=== PATIENT | female | born 1990 | race Caucasian/White ===

== ENCOUNTER 2018-01-28 21:48 | Emergency (ER) | payer MEDICAID, SELFPAY ==
[2018-01-28 21:48] VITALS: BP 132/84; PULSE 78; RESP 16; TEMP 36.7; O2SAT 98; BMI 38.0
[2018-01-28 21:55] VITALS: PULSE 73; RESP 16; O2SAT 97
--- NOTE | 2018-01-28 21:56 | ED.RN ---
RN CALLED FOR EKG, PULLED OLD EKG'S FOR
--- NOTE | 2018-01-28 22:20 | RAD_ITS ---
STUDY: X-RAY CHEST REASON FOR EXAM: Female, 27 years old. STERNAL CHEST PAIN STARTING APPROX 30 MIN AGO. WEAKNESS IN ALL EXTREMITIES TECHNIQUE: Single frontal view of the chest. COMPARISON: 11/13/2013 FINDINGS: The lungs are clear and expanded. There is no demonstrated pleural abnormality. Normal size heart. Normal mediastinum and win. Normal visualized pulmonary arteries. Normal visualized aortic arch and descending thoracic aorta. Normal visualized thoracic spine. Normal visualized ribs, clavicles, and shoulders. There is no demonstrated abnormality of the visualized soft tissue structures of the upper abdomen. RAD/Chest 1 View (Portable) IMPRESSION: Normal x-ray examination of the chest. Electronically Signed: Thor Jackson MD at 22:34 EDT Tel , Service support ,
--- NOTE | 2018-01-28 22:20 | EKG12_ITS ---
Test Reason : CP Blood Pressure : / mmHG Vent. Rate : 074 BPM Atrial Rate : 074 BPM P-R Int : 130 ms QRS Dur : 082 ms QT Int : 380 ms P-R-T Axes : 046 035 038 degrees QTc Int : 421 ms Normal sinus rhythm Normal ECG Confirmed by MARISSA JUÁREZ, MATTHEW ([id number]), clinical editor LARRY DURAN ([id number] on 01/31/2018 1:19:52 PM Referred By: ALBA/ESTHER Confirmed By:MATTHEW ANN MD
[2018-01-28 22:29] LABS: Absolute Lymphocyte Count 3.86 X10^3/ul (0.83-4.51); Absolute Neutrophil Count 5.5 X10^3/uL (2.0-7.7); Basophil# 0.04 X10^3/uL; Basophil% 0.4 % (0-1); Eosinophil# 0.12 X10^3/uL; Eosinophils% 1.2 % (0-5); Hematocrit 43.9 % (37-47); Hemoglobin 14.4 g/dl (12.0-15.0); Lymphocyte # 3.86 X10^3/ul (4.0); Lymphocyte % 38.7 % (19-41); Mean Corp Hgb Conc 32.8 g/gl (32-36); Mean Corpuscular Hgb 27.7 pg (27.0-32.0); Mean Corpuscular Volume 84.6 fL (81-99); Mean Platelet Vol. 10.5 fl (6.2-12.0); Monocyte# 0.47 X10^3/uL; Monocyte% 4.7 % (0-10); Neutrophil # 5.48 X10^3/uL (2.7-7.7); Neutrophil % 54.9 % (47-70); Platelet Count 281 K/mm3 (150-450); RBC Distribution Width CV 14.1 % (11.6-14.6); RBC Distribution Width SD 43.5 fl (35.1-43.9); Red Blood Count 5.19 M/mm3 (4.2-5.4)
[2018-01-28 22:30] LABS: POSITIVE COUNT NO; POSITIVE DIFFERENTIAL NO; POSITIVE MORPHOLOGY NO
[2018-01-28 22:47] LABS: Anion Gap 7 (5-15); BUN 8 mg/dL (7-18); Chloride 107 mmol/L (98-107); EST Glomerular Filtration Rate 69 mL/min (>60); Est Glom Filt Rate - Afr Amer 84 mL/min (>60); Estimated Creatinine Clearance 62.64 ml/min; Glucose 86 mg/dL (74-106); Potassium 3.4 mmol/L (3.5-5.1); Sodium Level 139 mmol/L (136-145)
[2018-01-28 23:10] LABS: D-Dimer Quantitative (DVT/PE) < 0.27 FEU/ug/m (0.27-0.49)
[2018-01-28 23:11] LABS: Pregnancy, Serum, hCG Quali. NEGATIVE Negative (0-9 Nonpreg)
--- NOTE | 2018-01-28 23:40 | ED.VISSUMM ---
- ER Visit Summary Date of Service: 01/28/18 Chief Complaint: Chest pain History of Present Illness: The patient is a 27 F reports having spots in her vision yesterday. That spontaneously resolved. She woke this morning with some chest pressure that persisted throughout the day. This evening she developed spots in her vision again, both eyes, followed by chest pressure. She states her legs became very weak. She denied feeling short of breath. 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 She denies any significant change in lifting over her normal however. Physical Examination: Vital signs are unremarkable. Patient sitting upright in bed no acute distress. Head neck examination is unremarkable. Heart is regular rate and rhythm. Lung sounds are clear. She does have reproducible chest wall tenderness. There is no crepitus. Abdomen is soft nontender. Lower extremity examination was no significant calf tenderness or edema. She has strong distal pulses. Test Results: EKG is sinus at 74 with no sign of acute ischemia. CBC and chemistry studies are significant only for potassium slightly low at 3.4. Troponin and d-dimer are both negative. test is negative. Chest x-ray is normal. Emergency Department Course and Treatment: Patient was given gentle IV fluids. On repeat evaluation she has no significant complaints. Test results were discussed with her. My suspicion is that she has musculoskeletal chest wall pain from starting a new job last night. I believe she may be having ocular migraines with spots in her vision. Tonight when this occurred I believe this led to increased anxiety which worsen her chest pain and made her legs weak. At this time I see no sign of aortic dissection, pulmonary embolism, or other acute cardiac issue causing the symptoms. Treatment Plan: [] Disposition: Discharge Impression: 1. Atypical chest pain 2. Intermittent blurred vision, suspect ocular migraine This note was generated with [employer] software. It may contain incorrect words, spelling, and punctuation that were not noted in review of the chart prior to signing ED Disposition - Plan for ED Patient: Chief Complaint: Chest Pain Referrals: Valerio Maynard MD [Primary Care Provider] -
--- NOTE | 2018-01-28 23:43 | ED.DCSUM_ITS ---
- ER Visit Summary Date of Service: 01/28/18 Chief Complaint: Chest pain History of Present Illness: The patient is a 27 F reports having spots in her vision yesterday. That spontaneously resolved. She woke this morning with some chest pressure that persisted throughout the day. This evening she developed spots in her vision again, both eyes, followed by chest pressure. She states her legs became very weak. She denied feeling short of breath. 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 She denies any significant change in lifting over her normal however. Physical Examination: Vital signs are unremarkable. Patient sitting upright in bed no acute distress. Head neck examination is unremarkable. Heart is regular rate and rhythm. Lung sounds are clear. She does have reproducible chest wall tenderness. There is no crepitus. Abdomen is soft nontender. Lower extremity examination was no significant calf tenderness or edema. She has strong distal pulses. Test Results: EKG is sinus at 74 with no sign of acute ischemia. CBC and chemistry studies are significant only for potassium slightly low at 3.4. Troponin and d-dimer are both negative. test is negative. Chest x- ray is normal. Emergency Department Course and Treatment: Patient was given gentle IV fluids. On repeat evaluation she has no significant complaints. Test results were discussed with her. My suspicion is that she has musculoskeletal chest wall pain from starting a new job last night. I believe she may be having ocular migraines with spots in her vision. Tonight when this occurred I believe this led to increased anxiety which worsen her chest pain and made her legs weak. At this time I see no sign of aortic dissection, pulmonary embolism, or other acute cardiac issue causing the symptoms. Treatment Plan: [] Disposition: Discharge Impression: 1. Atypical chest pain 2. Intermittent blurred vision, suspect ocular migraine This note was generated with [employer] software. It may contain incorrect words, spelling, and punctuation that were not noted in review of the chart prior to signing ED Disposition - Plan for ED Patient: Chief Complaint: Chest Pain Referrals: Valerio Maynard MD [Primary Care Provider] -
--- NOTE | 2018-01-28 23:43 | ED.DEP ---
ED Disposition - Plan for ED Patient: Disposition: Home or Assisted Living Chief Complaint: Chest Pain Instructions: ED Chest Pain Atypical Unkn Cause Referrals: Valerio Maynard MD [Primary Care Provider] - As soon as possible
[2018-01-28 23:50] VITALS: BP 103/52; PULSE 62; RESP 15; O2SAT 97
--- NOTE | 2018-01-28 23:54 | ED.DEP ---
ED Disposition - Plan for ED Patient: Disposition: Home or Assisted Living Chief Complaint: Chest Pain Instructions: ED Chest Pain Atypical Unkn Cause Prescriptions: Ondansetron [Zofran Odt] 4 mg PO Q8H PRN PRN #10 tablet PRN Reason: Nausea Ketorolac [Toradol] 10 mg PO Q6H PRN #14 tablet PRN Reason: Pain Referrals: Valerio Maynard MD [Primary Care Provider] - As soon as possible
== END 2018-01-29 00:02 | disposition home or self-care (01) ==
PROVIDERS: Emergency Provider Emergency Medicine; PCP Family Medicine
DX: R07.89 Other chest pain (principal); H53.8 Other visual disturbances; Z72.0 Tobacco use; G47.419 Narcolepsy without cataplexy
CPT/HCPCS: 71045; 80048; 84484; 84703; 85025; 85379; 93005; 99284; A4216

== ENCOUNTER → 2018-05-05 10:58 | Outpatient (CLI) | payer MEDICAID, SELFPAY ==
[2018-05-05 11:30] LABS: hCG Titer Quant., Serum < 1 mIU/mL (<9 non-preg)
== END ==
PROVIDERS: Family Provider Family Medicine; PCP Family Medicine; Referring Provider Obstetrics & Gynecology; Visit Provider Obstetrics & Gynecology
DX: N91.2 Amenorrhea, unspecified (principal)
CPT/HCPCS: 36415; 84702

== ENCOUNTER 2018-08-26 20:40 | Emergency (ER) | payer MEDICAID, SELFPAY ==
[2018-08-26 20:41] VITALS: BP 137/84; PULSE 101; RESP 15; TEMP 36.6; O2SAT 98; BMI 37.8
--- NOTE | 2018-08-26 21:31 | ED.RN ---
Addendum entered by Katlyn Oliver 08/26/18 21:31: AMBULATED TO LOBBY WITH A STEADY AND INDEPENDENT GAIT. Original Note: PT SEEN WALKING OUT OF ED BY THIS RN.
--- NOTE | 2018-08-26 21:35 | ED.RN ---
LOOKED AROUND TRIAGE, ASKED TRIAGE NURSE, PT NOT IN TRIAGE. UPDATED DR. HICKMAN, HE HAD NOT HAD A CHANCE TO SEE HER YET.
--- NOTE | 2018-08-26 21:36 | ED.VISSUMM ---
- ER Visit Summary Date of Service: 08/26/18 Chief Complaint: I went back to evaluate the patient and she left prior to being evaluated or discharge. History of Present Illness: The patient is a 28 F [] Physical Examination: [] Test Results: [] Emergency Department Course and Treatment: [] Treatment Plan: [] Disposition: [] Impression: Left prior to being evaluated or discharge. No ER physician charge This note was generated with [employer] dictation software. It may contain incorrect words, spelling, and punctuation that were not noted in review of the chart prior to signing ED Disposition - Plan for ED Patient: Referrals: Valerio Maynard MD [Primary Care Provider] -
== END 2018-08-26 22:17 ==
PROVIDERS: Emergency Provider Emergency Medicine; Family Provider Family Medicine; PCP Family Medicine
DX: R42 Dizziness and giddiness (principal)
CPT/HCPCS: 99282; J0153

== ENCOUNTER 2018-08-26 22:18 | Emergency (ER) | payer MEDICAID, SELFPAY ==
[2018-08-26 20:41] VITALS: BMI 37.8
== END 2018-08-26 22:18 ==
PROVIDERS: Emergency Provider Emergency Medicine; Family Provider Family Medicine; PCP Family Medicine
DX: J20.9 Acute bronchitis, unspecified (principal)
CPT/HCPCS: J0153

== ENCOUNTER → 2019-02-02 10:57 | Outpatient (CLI) | payer MEDICAID, SELFPAY ==
[2018-12-19 13:11] VITALS: BMI 35.6
[2019-02-02 11:51] LABS: hCG Titer Quant., Serum < 1 mIU/mL (1-3)
== END ==
PROVIDERS: Family Provider Family Medicine; PCP Family Medicine; Referring Provider Obstetrics & Gynecology; Visit Provider Obstetrics & Gynecology
DX: N91.2 Amenorrhea, unspecified (principal)
CPT/HCPCS: 36415; 84702

== ENCOUNTER → 2019-02-04 10:46 | Outpatient (CLI) | payer MEDICAID, SELFPAY ==
[2018-12-19 13:11] VITALS: BMI 35.6
[2019-02-04 11:33] LABS: hCG Titer Quant., Serum < 1 mIU/mL (1-3)
== END ==
PROVIDERS: Family Provider Family Medicine; PCP Family Medicine; Referring Provider Obstetrics & Gynecology; Visit Provider Obstetrics & Gynecology
DX: N91.2 Amenorrhea, unspecified (principal)
CPT/HCPCS: 36415; 84702

== ENCOUNTER → 2019-04-15 14:09 | Outpatient (CLI) | payer MEDICAID, SELFPAY ==
[2019-04-15 11:09] VITALS: BMI 35.6
[2019-04-20 17:36] LABS: HPV APTIMA, High Risk Negative (Negative)
== END ==
PROVIDERS: Family Provider Family Medicine; PCP Family Medicine; Visit Provider Obstetrics & Gynecology
DX: R30.0 Dysuria (principal); Z12.4 Encounter for screening for malignant neoplasm of cervix
CPT/HCPCS: 87086; 87088; 87624; 88175; G0145

== ENCOUNTER → 2019-04-27 14:25 | Outpatient (CLI) | payer MEDICAID, SELFPAY ==
[2019-04-15 11:09] VITALS: BMI 35.6
[2019-04-27 16:13] LABS: hCG Titer Quant., Serum 6181 mIU/mL (1-3)
== END ==
PROVIDERS: Family Provider Family Medicine; PCP Family Medicine; Referring Provider Obstetrics & Gynecology; Visit Provider Obstetrics & Gynecology
DX: Z34.90 Encounter for supervision of normal pregnancy, unspecified, unspecified trimester (principal)
CPT/HCPCS: 36415; 84702

== ENCOUNTER → 2019-04-29 14:38 | Outpatient (CLI) | payer MEDICAID, SELFPAY ==
[2019-04-15 11:09] VITALS: BMI 35.6
[2019-04-29 15:55] LABS: hCG Titer Quant., Serum 10169 mIU/mL (1-3)
== END ==
PROVIDERS: Family Provider Family Medicine; PCP Family Medicine; Referring Provider Obstetrics & Gynecology; Visit Provider Obstetrics & Gynecology
DX: Z34.90 Encounter for supervision of normal pregnancy, unspecified, unspecified trimester (principal)
CPT/HCPCS: 36415; 84702

== ENCOUNTER 2019-05-26 22:12 | Emergency (ER) | payer MEDICAID, SELFPAY ==
[2019-05-11 15:11] VITALS: BMI 35.6
[2019-05-26 22:13] VITALS: BP 137/86; PULSE 100; RESP 20; TEMP 36.1; O2SAT 99; BMI 38.0
--- NOTE | 2019-05-26 23:30 | ED.VIS.DENTA ---
History of Present Illness Chief Complaint: Dental Informant: Patient Onset: Yesterday Context: Gradual Onset Timing: Continuous Current Severity: Severe Maximum Severity: Severe Associated Symptoms: Hot, Cold Narrative: Patient is a 29-year-old female with no significant past medical history, currently 9 weeks presenting with dental pain. Patient states she went to see her dentist yesterday. He attempted to pull out a bad tooth, her bottom left back molar. She was not anesthetized all the way and her tooth ended up cracking. Patient states she was sent home with a prescription for an antibiotic and Tylenol with codeine. She has an appointment to see him again on Saturday. She notes that today her pain has been significantly worse in that area. She describes as a throbbing aching sensation. Patient states she did have cavity and hole in the tooth before he even started. Patient smokes but states she is trying to quit. Patient feels hot and cold but treats that to her pain. She denies any difficulty swallowing, facial swelling or difficulty breathing. She states she just wants help with her pain. She denies any other complaints at this time. Past Medical History - Allergies and Home Meds Allergies/Adverse Reactions: Allergies egg Allergy (Mild, Verified 05/26/19 22:12) Other adhesive tape Allergy (Verified 05/26/19 22:12) Unknown Latex, Natural Rubber Allergy (Verified 05/26/19 22:12) Hives aspirin Adverse Reaction (Verified 05/26/19 22:12) Abd cramps/diarrhea dicyclomine HCl [From Bentyl] Adverse Reaction (Verified 05/26/19 22:12) Abd cramps/diarrhea erythromycin base [Erythromycin Base] Adverse Reaction (Verified 05/26/19 22:12) Abd cramps/diarrhea naproxen Adverse Reaction (Verified 05/26/19 22:12) Abd cramps/diarrhea sulfamethoxazole [From Bactrim] Adverse Reaction (Verified 05/26/19 22:12) Abd cramps/diarrhea trimethoprim [From Bactrim] Adverse Reaction (Verified 05/26/19 22:12) Abd cramps/diarrhea Primary Care Physician: Valerio Maynard MD [Primary Care Provider] - Past Medical History: - - Narcolepsy, stomach ulcer, headaches Surgical History: noncontributory Smoking Status: Current some day smoker Review of Systems General: Reports: Chills. Denies: Fever, Sweats Eyes: Denies: Visual changes - bilaterally, Diplopia ENT: Reports: - - Left lower dental pain. Denies: Rhinorrhea, Sore throat Cardiovascular: Denies: Chest pain, Palpitations Respiratory: Denies: Dyspnea, Cough, Dyspnea on exertion Gastrointestinal: Denies: Abdominal pain, Nausea, Vomiting, Diarrhea, Melena, Hematochezia Genitourinary: Denies: Dysuria, Hematuria, Frequency Musculoskeletal: Denies: Back pain, Extremity Pain Skin: Denies: Rash, Wounds Neurological: Denies: Headache, Weakness, Numbness Physical Exam Vital Signs/Narrative: Vital Signs Temp Pulse Resp BP Pulse Ox 05/26/19 22:13 96.9 F L 100 20 H 137/86 H 99 Inital Vital Signs reviewed: Yes 1 - Cracked tooth and associated dental decay, area of tenderness with palpation General: Well nourished, Well developed Head: Normocephalic, Atraumatic ENT: Moist mucous membranes, No rhinorrhea, TM's clear Mouth/Throat: Normal inspection lips/gums, Normal oral mucosa, No focal abscess, Normal posterior oropharynx, No sublingual edema, Dental avulsion, Tenderness on tooth percussion, Widespread dental decay. Negative for: Dental abscess, Focal gum swelling Neck: Supple, No lymphadenopathy, Nontender, No JVD Cardiovascular: Regular rate, Regular rhythm, No murmurs Respiratory: No distress, CTA bilaterally, Chest nontender Abdomen: Soft, Nontender, Nondistended, Normal bowel sounds Back: Nontender, Normal Inspection Extremities: Nontender, No edema Skin: Normal color, No rash Neurological: Alert, Oriented x3, Cranial nerves II-XII grossly intact, Normal Strength, Normal Sensation Psychological: Normal affect Diagnostic/Tx/Re-eval - Medical Decision Making Regional and Local Dental Anesthesia: Marcaine, Left Inferior Alveolar Nerve Block Patient evaluated for worsening dental pain. Dental block is performed patient is improvement of her symptoms. She is already on antibiotics. Patient was prescribed Tylenol 3 by her dentist yesterday. Oarrs report is checked which confirms this. Patient is not receiving adequate pain control with this. She is given a short course of [place] for more severe breakthrough pain. She already has a follow-up appointment with her dentist on Saturday, 5 days from now. Patient does have an episode of vomiting in the ER. She states is because of her and she is been unable to eat because of her pain. Patient states she has Phenergan at home to take as needed. As patient is not having any lower abdominal pain or vaginal bleeding I do not think further obstetric evaluation is indicated at this time. Patient is counseled on signs and symptoms requiring return to the emergency room. Patient verbalizes agreement and understand this plan. Patient discharged home in stable and improved condition. ED Disposition - Plan for ED Patient: Disposition: Home or Assisted Living Diagnosis: Dentalgia Instructions: Dental Pain Prescriptions: Hydrocodone/Acetaminophen [Hydrocodon-Acetaminophen 5-325] 1 ea PO Q8 PRN 2 Days #6 tab PRN Reason: Pain Score 6-10/10 Prescription Printed Referrals: Valerio Maynard MD [Primary Care Provider] - Additional Instructions: Is very importantly follow-up with your dentist on Saturday as scheduled. Continue to take the medications prescribed. You may take the [place] prescribed today for severe breakthrough pain. Do not take it in conjunction with the Tylenol with codeine as it would be too much Tylenol. Return to emergency room with worsening symptoms.
[2019-05-27] MEDS: Bupivacaine 0.5%/Epi 1.8 ML Syringe INFILT (00:56)
== END 2019-05-27 00:56 | disposition home or self-care (01) ==
PROVIDERS: Emergency Provider Emergency Medicine; Family Provider Family Medicine; PCP Family Medicine
DX: K08.89 Other specified disorders of teeth and supporting structures (principal); G47.419 Narcolepsy without cataplexy; Z87.19 Personal history of other diseases of the digestive system; Z88.1 Allergy status to other antibiotic agents; Z88.2 Allergy status to sulfonamides; Z88.6 Allergy status to analgesic agent; Z91.040 Latex allergy status
CPT/HCPCS: 41800; 64402; 99283

== ENCOUNTER → 2019-05-27 12:25 | Outpatient (CLI) | payer MEDICAID, SELFPAY ==
[2019-05-27 11:34] VITALS: BMI 38.0
[2019-05-27 13:00] LABS: Absolute Lymphocyte Count 2.65 X10^3/uL (0.83-4.51); Basophil# 0.03 X10^3/uL; Basophil% 0.4 % (0-1); Eosinophil# 0.07 X10^3/uL; Eosinophils% 0.8 % (0-5); Hematocrit 40.5 % (37-47); Hemoglobin 13.3 g/dL (12.0-15.0); Lymphocyte # 2.65 X10^3/ul (4.0); Lymphocyte % 32.1 % (19-41); Mean Corp Hgb Conc 32.8 g/dL (32-36); Mean Corpuscular Hgb 28.2 pg (27.0-32.0); Mean Corpuscular Volume 85.8 fL (81-99); Mean Platelet Vol. 10.2 fl (6.2-12.0); Monocyte# 0.49 X10^3/uL; Monocyte% 5.9 % (0-10); NRBC Flagged by Analyzer 0 % (0-5); Neutrophil # 4.99 X10^3/uL (2.7-7.7); Neutrophil % 60.4 % (47-70); Platelet Count 276 K/mm3 (150-450); RBC Distribution Width CV 13.5 % (11.6-14.6); RBC Distribution Width SD 42.4 fl (35.1-43.9); Red Blood Count 4.72 M/mm3 (4.2-5.4); White Blood Count 8.3 K/mm3 (4.4-11.0)
[2019-05-27 13:12] LABS: Glucose Challenge Gest 1H 50g 87 mg/dL (70-140)
[2019-05-27 14:51] LABS: HIV - WCH Non-Reactive (Nonreactive); Hepatitis B Surface Antigen Non-Reactive (Nonreactive); Rubella IgG > 500.0 IU/mL
[2019-05-28 03:12] LABS: Rapid Plasmin Reagin (RPR) NONREACTIVE (NONREACTIVE)
== END ==
PROVIDERS: Family Provider Family Medicine; PCP Family Medicine; Referring Provider Obstetrics & Gynecology; Visit Provider Obstetrics & Gynecology
DX: Z34.90 Encounter for supervision of normal pregnancy, unspecified, unspecified trimester (principal)
CPT/HCPCS: 36415; 82950; 85025; 86592; 86703; 86762; 86850; 86900; 86901; 87086; 87088; 87340

== ENCOUNTER 2019-06-11 15:28 | Emergency (ER) | payer MEDICAID, SELFPAY ==
[2019-05-27 11:34] VITALS: BMI 38.0
[2019-06-11 15:29] VITALS: BP 134/75; PULSE 109; RESP 17; TEMP 37; O2SAT 98; BMI 38.0
[2019-06-11 15:38] VITALS: BP 130/80; PULSE 98; RESP 14; RESP 16; TEMP 37; O2SAT 97; O2SAT 98
--- NOTE | 2019-06-11 16:04 | ED.VIS.DENTA ---
History of Present Illness Chief Complaint: Dental Informant: Patient Onset: Days Context: Gradual Onset Timing: Continuous Associated Symptoms: Fever, Sensitivity Narrative: Patient is a 29-year-old female currently approximately 12 weeks presenting with persistent dental pain. Patient states she has had pain of her bottom left molar for the past few weeks. She saw a dentist and they attempted to pull the tooth. The tooth cracked at that time. Patient was then discharged with a prescription for Tylenol 3 and antibiotics. She was seen in the ER 2 days later for worsening pain. At that time she was started on [place]. Patient states she is been taking it sparingly but took the last one yesterday. Patient states she is continued to stay on her antibiotics. She notes for the last 4 days she has had intermittent fevers. Her maximum temperature was 102. Patient did not take any medication for fever prior to arrival. Her dental pain has been worsening. Is now sharp with any light touch. She is having a hard time eating because of the pain. She states she is now having a headache and pain in her cheeks because of the tooth pain. She states she has had worsening nausea and vomiting. She states it is worse than her normal vomiting. She denies any abdominal pain. She denies any abnormal vaginal bleeding or pelvic pain. She notes she is not feeling as much motion and is concerned about the . Patient denies any other complaints at this time. Past Medical History - Allergies and Home Meds Allergies/Adverse Reactions: Allergies egg Allergy (Mild, Verified 06/11/19 15:29) Other adhesive tape Allergy (Verified 06/11/19 15:29) Unknown Latex, Natural Rubber Allergy (Verified 06/11/19 15:29) Hives aspirin Adverse Reaction (Verified 06/11/19 15:29) Abd cramps/diarrhea dicyclomine HCl [From Bentyl] Adverse Reaction (Verified 06/11/19 15:29) Abd cramps/diarrhea erythromycin base [Erythromycin Base] Adverse Reaction (Verified 06/11/19 15:29) Abd cramps/diarrhea naproxen Adverse Reaction (Verified 06/11/19 15:29) Abd cramps/diarrhea sulfamethoxazole [From Bactrim] Adverse Reaction (Verified 06/11/19 15:29) Abd cramps/diarrhea trimethoprim [From Bactrim] Adverse Reaction (Verified 06/11/19 15:29) Abd cramps/diarrhea Primary Care Physician: Valerio Maynard MD [Primary Care Provider] - Past Medical History: None Surgical History: noncontributory Smoking Status: Current every day smoker Review of Systems General: Reports: Chills, Fever. Denies: Sweats Eyes: Denies: Visual changes - bilaterally, Diplopia ENT: Reports: - - right lower dental pain . Denies: Rhinorrhea, Sore throat Cardiovascular: Denies: Chest pain, Palpitations Respiratory: Denies: Dyspnea, Cough, Dyspnea on exertion Gastrointestinal: Reports: Nausea, Vomiting. Denies: Abdominal pain, Diarrhea, Melena, Hematochezia Genitourinary: Denies: Dysuria, Hematuria, Frequency Musculoskeletal: Denies: Back pain, Extremity Pain Skin: Denies: Rash, Wounds Neurological: Denies: Headache, Weakness, Numbness Physical Exam Vital Signs/Narrative: Vital Signs Temp Pulse Resp BP Pulse Ox 06/11/19 15:38 98.6 F 98 16 130/80 H 98 06/11/19 15:29 98.6 F 109 H 17 134/75 H 98 Inital Vital Signs reviewed: Yes General: Well nourished, Well developed Head: Normocephalic, Atraumatic ENT: Moist mucous membranes, No rhinorrhea, TM's clear Mouth/Throat: Normal inspection lips/gums, Normal oral mucosa, Normal posterior oropharynx, No sublingual edema, Dental avulsion, Tenderness on tooth percussion - right lower second molar , Widespread dental decay. Negative for: Dental abscess, Focal gum swelling Neck: Supple, No lymphadenopathy, Nontender, No JVD Cardiovascular: Regular rate, Regular rhythm, No murmurs Respiratory: No distress, CTA bilaterally, Chest nontender Abdomen: Soft, Nontender, Nondistended, Normal bowel sounds Back: Nontender, Normal Inspection Extremities: Nontender, No edema Skin: Normal color, No rash Neurological: Alert, Oriented x3, Cranial nerves II-XII grossly intact, Normal Strength, Normal Sensation Psychological: Normal affect Diagnostic/Tx/Re-eval - Medical Decision Making Dental Procedures: [place] temporary sealant placed Regional and Local Dental Anesthesia: Marcaine, Left Inferior Alveolar Nerve Block Patient is evaluated for persistent right lower dental pain. Her tooth is cracked from where her dentist tried to extract its last month. Patient has been on antibiotics since. She has not yet followed up with her dentist. She states she does have an appointment to see him on Saturday, 4 days from now. She states she is been having fevers at home. Patient is afebrile in the emergency room and states she did not take any antipyretics prior to arrival. She does she has had worsening nausea and vomiting. Patient is 12 weeks . She reports that she is felt less activity as well. A bedside ultrasound performed by myself shows a single intrauterine gestation with normal activity and heart tones of 152. Patient's CBC and BMP are grossly normal. She is initially given IV fluids, Zofran and a dose of morphine in the ER. She is then given dental block for pain and Cavit is applied to the cracked tooth. Patient be switched to Augmentin she has already completed a course of penicillin. She is given another short course of [place] as she has a follow-up appointment in a few days. Patient is counseled that no matter how bad her tooth is hurting her she needs to see the dentist because that is the definitive management for her tooth. Patient is agreeable to this. She does not have any physical signs of abscess. She does not have any significant facial swelling or cellulitic changes. She does not have any findings consistent with Edgar's angina. I do not think further imaging of her head/neck is indicated. At time of discharge patient states her pain is returning. She is given a dose of [place] just prior to discharge. Patient is counseled on signs and symptoms requiring return to the emergency room. Patient verbalizes agreement and understand this plan. Patient discharged home in stable and improved condition. ED Disposition - Plan for ED Patient: Disposition: Home or Assisted Living Diagnosis: Dentalgia Instructions: Dental Pain Prescriptions: Amoxicillin/Potassium Clav [Augmentin 875-125 Tablet] 1 ea PO BID #20 tab Prescription Printed Hydrocodone Bitart/Apap 5-325 [[place] 5MG-325MG] 1 tab PO Q8 PRN 2 Days #6 tab PRN Reason: Pain Prescription Printed Referrals: Valerio Maynard MD [Primary Care Provider] - Additional Instructions: It is very important that you follow-up with your dentist as scheduled on Saturday. Return to emergency room for worsening symptoms. Take the medication as prescribed. Stick to a soft/liquid diet until Saturday.
[2019-06-11 16:36] LABS: Hematocrit 40.2 % (37-47); Hemoglobin 13.4 g/dL (12.0-15.0); Mean Corp Hgb Conc 33.3 g/dL (32-36); Mean Corpuscular Hgb 28.4 pg (27.0-32.0); Mean Corpuscular Volume 85.2 fL (81-99); Mean Platelet Vol. 9.9 fl (6.2-12.0); Platelet Count 256 K/mm3 (150-450); RBC Distribution Width CV 12.9 % (11.6-14.6); RBC Distribution Width SD 40.1 fl (35.1-43.9); Red Blood Count 4.72 M/mm3 (4.2-5.4); White Blood Count 10.5 K/mm3 (4.4-11.0)
[2019-06-11] MEDS: 0.9% Normal Saline 1,000 ML 1000 ML IV (16:46)
[2019-06-11] MEDS: Ondansetron 4 MG/2 ML Vial IV (16:46)
[2019-06-11] MEDS: Morphine 4 MG/ML Syringe IV (16:47)
[2019-06-11 17:16] LABS: Anion Gap 9 (5-15); BUN 5 mg/dL (7-18); BUN/Creat Ratio 7.2 RATIO (10-20); Calcium,Total 8.8 mg/dL (8.5-10.1); Chloride 108 mmol/L (98-107); EST Glomerular Filtration Rate 104 mL/min (>60); Est Glom Filt Rate - Afr Amer 126 mL/min (>60); Estimated Creatinine Clearance 83.64 ml/min; Glucose 90 mg/dL (74-106); Potassium 3.8 mmol/L (3.5-5.1); Sodium Level 138 mmol/L (136-145)
[2019-06-11 18:19] VITALS: PULSE 76; RESP 15; O2SAT 98
[2019-06-11] MEDS: HYDROcodone Bitartrate/Apap 5/325 Tablet PO (18:23)
== END 2019-06-11 18:26 | disposition home or self-care (01) ==
PROVIDERS: Emergency Provider Emergency Medicine; Family Provider Family Medicine; PCP Family Medicine
DX: O26.891 Other specified pregnancy related conditions, first trimester (principal); K08.89 Other specified disorders of teeth and supporting structures; O99.331 Smoking (tobacco) complicating pregnancy, first trimester; O99.611 Diseases of the digestive system complicating pregnancy, first trimester; O21.9 Vomiting of pregnancy, unspecified; F17.200 Nicotine dependence, unspecified, uncomplicated; Z3A.12 12 weeks gestation of pregnancy; Z88.1 Allergy status to other antibiotic agents; Z88.6 Allergy status to analgesic agent; Z88.2 Allergy status to sulfonamides; Z91.040 Latex allergy status
CPT/HCPCS: 80048; 85027; 99284; J7030; J2405

== ENCOUNTER → 2019-06-25 11:25 | Outpatient (CLI) | payer MEDICAID, SELFPAY ==
[2019-06-25 11:21] VITALS: BMI 38.0
[2019-06-25 16:41] LABS: Chlamydia Trachomatis by PCR Negative (Negative); Neisserai gonorrhoeae by PCR Negative (Negative); Probe Check PASS; Sample Adequacy Control PASS; Specimen Processing Control PASS
== END ==
PROVIDERS: Family Provider Family Medicine; PCP Family Medicine; Referring Provider Nurse Practitioner Women's Health; Visit Provider Nurse Practitioner Women's Health
DX: O26.20 Pregnancy care for patient with recurrent pregnancy loss, unspecified trimester (principal); Z31.430 Encounter of female for testing for genetic disease carrier status for procreative management; Z3A.00 Weeks of gestation of pregnancy not specified
CPT/HCPCS: 36415; 87491; 87591

== ENCOUNTER → 2019-07-24 12:17 | Outpatient (CLI) | payer MEDICAID, SELFPAY ==
[2019-07-24 12:07] VITALS: BMI 38.0
== END ==
PROVIDERS: PCP Family Medicine; Referring Provider Obstetrics & Gynecology; Visit Provider Obstetrics & Gynecology
DX: Z36.9 Encounter for antenatal screening, unspecified (principal)
CPT/HCPCS: 36415

== ENCOUNTER → 2019-08-04 12:26 | Outpatient (CLI) | payer MEDICAID, SELFPAY ==
[2019-06-25 11:21] VITALS: BMI 38.0
[2019-07-24 12:07] VITALS: BMI 38.0
--- NOTE | 2019-08-04 12:27 | US_ITS ---
STUDY: SECOND AND THIRD TRIMESTER OBSTETRICAL ULTRASOUND REASON FOR EXAM: Female, 29 years old anatomy LMP: March 21, 2019. TECHNIQUE: Transabdominal TECHNICAL QUALITY: Adequate. PRIOR ULTRASOUND: None. FINDINGS: There is a single intrauterine fetus. The fetus is in a cephalic presentation. There is demonstrated cardiac activity with a heart rate of 150 bpm. There is a normal amniotic fluid volume. The largest amniotic fluid pocket measures 6 cm x 2.8 cm. The amniotic fluid index ([place]) is within normal limits. The placenta is posterior and low lying but not previa in location. The tip of the placenta is a 1.1 sinus from the cervix. There are Grade 1 placental changes. The cervix measures 4 cm in length. The adnexal regions are not visualized. BIOMETRY: BPD: 4.57 cm: 19 weeks, 5 days HC: 16.79 cm: 19 weeks, 3 days AC: 14.39 cm: 19 weeks, 5 days FL: 3.13 cm: 19 weeks, 4 days CI: 81.1% FL/BPD: 68.5% FL/HC: FL/AC: 21.7% HC/AC: 1.17 age by current US: 19 weeks, 3 days. JOANN by current US: December 26, 2019. Estimated weight: 307 grams, +/- 45 grams, 60 %. Age by LMP: 19 weeks, 3 days. JOANN by LMP: December 26, 2019. ANATOMY: Gender: Male Cranium: Normal lateral ventricles. Normal choroid plexus. Normal cerebellum. Normal cisterna magna. Normal face, nose and lips. Chest: Normal 4-chamber heart. Abdomen/Pelvis: Normal diaphragm. Normal stomach. Normal abdominal wall. Normal cord insertion. Normal 3 vessel cord. Normal kidneys. Normal bladder. Spine: Normal cervical spine. Normal thoracic spine. Normal lumbar spine. Normal sacrum. Extremities: Normal bilateral upper extremities. Normal bilateral lower extremities. US/OB Anatomy Scan IMPRESSION: Single live intrauterine gestation with a mean gestational age of 19 weeks and 3 days. Electronically Signed: Rolo Cruz, at 9:33 EST , Service support ,
== END ==
PROVIDERS: PCP Family Medicine; Referring Provider Obstetrics & Gynecology; Visit Provider Obstetrics & Gynecology
DX: Z34.90 Encounter for supervision of normal pregnancy, unspecified, unspecified trimester (principal)
CPT/HCPCS: 76805; 76817

== ENCOUNTER → 2019-08-11 13:22 | Outpatient (CLI) | payer MEDICAID, SELFPAY ==
[2019-08-11 11:11] VITALS: BMI 38.0
[2019-08-11 14:09] LABS: Amphetamine Urine VISTA NEGATIVE (<1000 ng/mL); Barbiturate Urine VISTA NEGATIVE (< 200 ng/mL); Benzodiazepine Urine VISTA NEGATIVE (< 200 ng/mL); Cocaine Urine VISTA NEGATIVE (< 300 ng/mL); Ecstacy Urine VISTA NEGATIVE (< 500 ng/mL); Methadone Urine VISTA NEGATIVE (< 300 ng/mL); PCP Urine VISTA NEGATIVE (< 25 ng/mL); THC Urine VISTA NEGATIVE (< 50 ng/mL); Vista UDS pH Range 6
== END ==
PROVIDERS: PCP Family Medicine; Referring Provider Nurse Practitioner Women's Health; Visit Provider Nurse Practitioner Women's Health
DX: O09.90 Supervision of high risk pregnancy, unspecified, unspecified trimester (principal); F19.11 Other psychoactive substance abuse, in remission; Z3A.00 Weeks of gestation of pregnancy not specified
CPT/HCPCS: 80307

== ENCOUNTER → 2019-09-18 11:39 | Outpatient (CLI) | payer MEDICAID, SELFPAY ==
[2019-09-18 10:23] VITALS: BMI 38.0
[2019-09-18 13:31] LABS: Amphetamine Urine VISTA NEGATIVE (<1000 ng/mL); Barbiturate Urine VISTA NEGATIVE (< 200 ng/mL); Benzodiazepine Urine VISTA NEGATIVE (< 200 ng/mL); Cocaine Urine VISTA NEGATIVE (< 300 ng/mL); Ecstacy Urine VISTA NEGATIVE (< 500 ng/mL); Methadone Urine VISTA NEGATIVE (< 300 ng/mL); PCP Urine VISTA NEGATIVE (< 25 ng/mL); THC Urine VISTA NEGATIVE (< 50 ng/mL); Vista UDS pH Range 7
== END ==
PROVIDERS: PCP Family Medicine; Referring Provider Obstetrics & Gynecology; Visit Provider Obstetrics & Gynecology
DX: F19.11 Other psychoactive substance abuse, in remission (principal)
CPT/HCPCS: 80307

== ENCOUNTER 2019-09-21 16:50 | Outpatient (CLI) | payer MEDICAID, SELFPAY ==
[2019-09-18 10:23] VITALS: BMI 38.0
[2019-09-21 16:59] VITALS: BMI 42.3
[2019-09-21 17:18] VITALS: BP 129/61; PULSE 96; TEMP 36.8; O2SAT 96
[2019-09-21 17:20] VITALS: BP 129/61; PULSE 101; PULSE 99; O2SAT 96
[2019-09-21 18:09] LABS: ROM Internal Control Test YES-OK TO RESULT pt. (Internal QC); ROM Patient Test Negative (Negative)
[2019-09-21 18:28] LABS: Mucous, Urine 0 SEEN /hpf (<or=2+)
[2019-09-21 18:30] LABS: Color, Urine Yellow (Yellow); Glucose, Dipstick Normal (Normal); Ketone-Dipstick Negative (Negative); Leukocyte Esterase-Dipstick 25 /ul (Negative); Nitrite-Dipstick Negative (Negative); Occult Blood-Urine 25 /ul (Negative); Protein-Dipstick Negative (Negative); Specific Gravity, Urine 1.015 (1.002-1.030); Urine Bilirubin Dipstick Negative (Negative); Urine Clarity Sl. Cloudy (Clear); Urine Urobilinogen Normal (Normal); Urine pH 6.5 (5.0 - 8.0)
[2019-09-21 19:22] LABS: Squamous Epithelial Cells - UA 5-10 SEEN /hpf (5-10)
[2019-09-21 19:23] LABS: Red Blood Cells-Urine 0-5 SEEN /hpf (0-5); White Blood Cells 0-5 SEEN /hpf (0-5)
[2019-09-21 19:24] LABS: Bacteria RARE /hpf (None Seen)
[2019-09-21 19:45] VITALS: PULSE 90; O2SAT 97
--- NOTE | 2019-09-21 20:30 | OB.TRI.NOTE ---
- Problem List (1) 26 weeks gestation of Status: Acute (2) False labor Status: Acute History of Present Illness Date of Service: 09/21/19 Was patient seen by the physician?: Yes Reason For Visit: R/O LABOR Final JOANN: 12/26/19 Final JOANN Source: US <20 weeks Gestational age: 26 Weeks and 2 Days History of Present Illness: 29yo with hx multiple first trimester SABs presents with cramping lower abdominal pain. She reports it is mild and also has low back pain. Reports feeling wetness. No recent intercourse, + intermittent brown discharge. No recent trauma or falls. Fetus is active. Allergies egg Allergy (Mild, Verified 09/18/19 10:22) Other adhesive tape Allergy (Verified 09/18/19 10:22) Unknown Latex, Natural Rubber Allergy (Verified 09/18/19 10:22) Hives aspirin Adverse Reaction (Verified 09/18/19 10:22) Abd cramps/diarrhea dicyclomine HCl [From Bentyl] Adverse Reaction (Verified 09/18/19 10:22) Abd cramps/diarrhea erythromycin base [Erythromycin Base] Adverse Reaction (Verified 09/18/19 10:22) Abd cramps/diarrhea naproxen Adverse Reaction (Verified 09/18/19 10:22) Abd cramps/diarrhea sulfamethoxazole [From Bactrim] Adverse Reaction (Verified 09/18/19 10:22) Abd cramps/diarrhea trimethoprim [From Bactrim] Adverse Reaction (Verified 09/18/19 10:22) Abd cramps/diarrhea - Pertinent Past Medical History Medical History: Past Medical History (Last Reviewed 09/18/19 @ 10:23 by Ivone Taylor) Anemia Back pain Chest pain History of drug use in recovery Narcolepsy Severe headache Shortness of breath Stomach ulcer unusual tiredness Surgical History: Past Surgical History (Last Reviewed 09/18/19 @ 10:23 by Ivone Taylor) History of x2 Hx laparoscopic cholecystectomy Laboratory Studies: Laboratory Tests 09/21/19 09/21/19 Range/Units 17:30 17:20 Urine Color Yellow (Yellow) Urine Clarity Sl. Cloudy (Clear) Urine pH 6.5 (5.0 - 8.0) Ur Specific [place] 1.015 (1.002-1.030) Urine Protein Negative (Negative) mg/dl Urine Glucose (UA) Normal (Normal) mg/dl Urine Ketones Negative (Negative) mg/dl Urine Occult Blood 25 H (Negative) /ul Urine Nitrite Negative (Negative) Urine Bilirubin Negative (Negative) mg/dL Urine Urobilinogen Normal (Normal) mg/dl Ur Leukocyte Esterase 25 H (Negative) /ul Urine RBC 0-5 SEEN (0-5) /hpf Urine WBC 0-5 SEEN (0-5) /hpf Ur Squamous Epith Cells 5-10 SEEN (5-10) /hpf Urine Bacteria RARE (None Seen) /hpf Urine Mucus 0 SEEN (<or=2+) /hpf Vag Amniotic Fld Detect Negative (Negative) Review of Systems Constitutional: Denies: Fever Gastrointestinal: Denies: Constipation, Diarrhea, Nausea, Vomiting Genitourinary: Denies: Dysuria, Hematuria Gynecological: Reports: - - brown spotting. Denies: Vaginal bleeding Musculoskeletal: Reports: Back Pain Physical Exam Vitals: Vital Signs Temp Pulse BP Pulse Ox 98.3 F 90 129/61 H 97 09/21/19 17:18 09/21/19 19:45 09/21/19 17:20 09/21/19 19:45 General: Alert, Oriented x3, Cooperative, No apparent distress HEENT: Atraumatic, Normocephalic Cardiovascular: Regular rate Lungs: Normal air movement Abdomen: Soft, Non Tender, Non-Distended, Gravid, - - No CVA or suprapubic tenderness Neurological: Neuro grossly intact ELECTRICAL AND INSTRUMENTATION MECHANIC: Normal external genitalia Estimated gestational size: Appropriate for gestational size Presentation: Cephalic Cervix Dilation (cm): 0 - visually and on TVUS, SSE - neg pool NST - FHR Rate Baby A Baseline: 140 Variability:: Moderate Accelerations:: 15 x 15 Decelerations:: None NST Reactive:: Yes FHR Category:: Category I Uterine Activity:: 0/10 Impression/Plan 29yo with false labor, [place] Thrasher contractions; Cat I FHR -Bedside US performed with cervical length 34-39mm os. Placenta remains low lying <2cm from external os. -ROM plus negative -No evidence of labor -U/A c/w contamination and blood likely 2/2 spotting from low lying placenta. No evidence of infection. -d/c home. Office Visits / Consults: [id number] OV L2 New
== END 2019-09-21 20:18 | disposition home or self-care (01) ==
LOC: WPOUT 16:57 → WP 16:58
PROVIDERS: PCP Family Medicine; Referring Provider Obstetrics & Gynecology; Visit Provider Obstetrics & Gynecology
DX: O47.02 False labor before 37 completed weeks of gestation, second trimester (principal); O99.352 Diseases of the nervous system complicating pregnancy, second trimester; G47.419 Narcolepsy without cataplexy; Z3A.26 26 weeks gestation of pregnancy; Z91.040 Latex allergy status; Z88.6 Allergy status to analgesic agent; Z88.2 Allergy status to sulfonamides; Z88.1 Allergy status to other antibiotic agents
CPT/HCPCS: 59025; 59050; 76815; 81001; 84112; 99218; G0378

== ENCOUNTER → 2019-09-23 13:45 | Outpatient (CLI) | payer MEDICAID, SELFPAY ==
[2019-09-18 10:23] VITALS: BMI 38.0
[2019-09-21 16:59] VITALS: BMI 42.3
--- NOTE | 2019-09-23 13:45 | US_ITS ---
STUDY: SECOND AND THIRD TRIMESTER OBSTETRICAL ULTRASOUND - LIMITED REASON FOR EXAM: Female, 29 years old low lying placenta LMP: March 20, 2019. PRIOR ULTRASOUND: Comparison is made with prior examination dated August 04, 2019. TECHNIQUE: Transabdominal and Transvaginal TECHNICAL QUALITY: Adequate. FINDINGS: There is a single intrauterine fetus. The fetus is in a cephalic presentation. There is demonstrated cardiac activity with a heart rate of 145 bpm. There is a normal amniotic fluid volume. The largest amniotic fluid pocket measures 5.7 cm x 2.5 cm. The amniotic fluid index ([place]) is within normal limits. The placenta is posterior and fundal. No evidence of a low-lying placenta at this time. The tip of the placenta lies at 4.8 cm from the cervical os. There are Grade 0 placental changes. The cervix measures 4.1 cm in length. Age by LMP: 26 weeks, 4 days. JOANN by LMP: December 26, 2019.. age by prior US: 26 weeks, 4 days. JOANN by prior US: January 03, 2020. US/OB Limited (No Biometrics) IMPRESSION: Posterior and fundal placenta. No evidence of low-lying placenta. Electronically Signed: Rolo Cruz, at 14:48 EDT , Service support , Please refer to the ultrasound OB limited report. Electronically Signed: Rolo Cruz, at 14:48 EDT , Service support ,
== END ==
PROVIDERS: PCP Family Medicine; Referring Provider Obstetrics & Gynecology; Visit Provider Obstetrics & Gynecology
DX: O44.42 Low lying placenta NOS or without hemorrhage, second trimester (principal); Z3A.00 Weeks of gestation of pregnancy not specified
CPT/HCPCS: 76815; 76817

== ENCOUNTER → 2019-10-09 09:48 | Outpatient (CLI) | payer MEDICAID, SELFPAY ==
[2019-09-21 16:59] VITALS: BMI 42.3
[2019-10-09 10:14] LABS: Absolute Lymphocyte Count 2.36 X10^3/uL (0.83-4.51); Basophil# 0.06 X10^3/uL; Basophil% 0.5 % (0-1); Eosinophil# 0.12 X10^3/uL; Eosinophils% 0.9 % (0-5); Hematocrit 34.7 % (37-47); Hemoglobin 11.2 g/dL (12.0-15.0); Lymphocyte # 2.36 X10^3/ul (4.0); Lymphocyte % 17.8 % (19-41); Mean Corp Hgb Conc 32.3 g/dL (32-36); Mean Corpuscular Hgb 27.2 pg (27.0-32.0); Mean Corpuscular Volume 84.2 fL (81-99); Mean Platelet Vol. 10.1 fl (6.2-12.0); Monocyte# 0.59 X10^3/uL; Monocyte% 4.5 % (0-10); NRBC Flagged by Analyzer 0 % (0-5); Neutrophil # 9.98 X10^3/uL (2.7-7.7); Neutrophil % 75.3 % (47-70); Platelet Count 319 K/mm3 (150-450); RBC Distribution Width CV 13.6 % (11.6-14.6); RBC Distribution Width SD 41.8 fl (35.1-43.9); Red Blood Count 4.12 M/mm3 (4.2-5.4); White Blood Count 13.2 K/mm3 (4.4-11.0)
[2019-10-09 10:30] LABS: Glucose Challenge Gest 1H 50g 110 mg/dL (70-140)
== END ==
PROVIDERS: PCP Family Medicine; Referring Provider Obstetrics & Gynecology; Visit Provider Obstetrics & Gynecology
DX: Z34.90 Encounter for supervision of normal pregnancy, unspecified, unspecified trimester (principal)
CPT/HCPCS: 36415; 82950; 85025

== ENCOUNTER → 2019-11-19 | Outpatient (CLI) | payer MEDICAID, SELFPAY ==
[2019-11-19 13:08] VITALS: BMI 42.3
== END | disposition home or self-care (01) ==
LOC: LABSPEC 17:27
PROVIDERS: PCP Family Medicine; Referring Provider Nurse Practitioner Women's Health; Visit Provider Nurse Practitioner Women's Health
DX: N89.8 Other specified noninflammatory disorders of vagina (principal)
CPT/HCPCS: 87086; 87088

== ENCOUNTER → 2019-11-23 13:27 | Outpatient (CLI) | payer MEDICAID, SELFPAY ==
[2019-11-12 09:49] VITALS: BMI 42.3
[2019-11-19 13:08] VITALS: BMI 42.3
--- NOTE | 2019-11-23 13:28 | US_ITS ---
STUDY: SECOND AND THIRD TRIMESTER OBSTETRICAL ULTRASOUND - LIMITED REASON FOR EXAM: Female, 29 years old. Size discrepancy. LMP: March 21, 2019 PRIOR ULTRASOUND: August 04, 2019 and September 23, 2019 . TECHNIQUE: Transabdominal TECHNICAL QUALITY: Adequate. FINDINGS: There is a single intrauterine fetus. The fetus is in a cephalic presentation. There is demonstrated cardiac activity with a heart rate of 135 bpm. There is a normal amniotic fluid volume. The largest amniotic fluid pocket measures 4.33 cm. The amniotic fluid index ([place]) is 13.23 cm. The placenta is fundal and posterior and not low-lying There are Grade 2 placental changes. The cervix measures 3.0 cm in length. BIOMETRY: BPD: 8.33 cm: 33 weeks, 3 days HC: 30.75 cm: 34 weeks, 2 days AC: 32.96 cm: 36 weeks, 6 days FL: 6.67 cm: 34 weeks, 2 days Age by LMP: 35 weeks, 2 days. JOANN by LMP: December 26, 2019.. age by initial US: 35 weeks, 2 days. JOANN by initial US: December 26, 2019. age by current US: 34 weeks, 1 days. JOANN by current US: January 03, 2020. Estimated weight: 2713 grams, +/- 404 grams, 53 percentile. US/OB Limited With Biometrics IMPRESSION: 1. Live single intrauterine of 34 weeks, 1 day. JOANN is January 03, 2020. This is one week behind expected gestational age by initial ultrasound. 2. EFW of 2713 g. 3. OK[place] of 13.23 cm. 4. Frontal and posterior grade 2 placenta. 5. Vertex presentation. Electronically Signed: Moisés Flaherty DO at 16:21 EDT Tel [phone], Service support ,
== END ==
PROVIDERS: PCP Family Medicine; Referring Provider Obstetrics & Gynecology; Visit Provider Obstetrics & Gynecology
DX: O26.843 Uterine size-date discrepancy, third trimester (principal); Z3A.34 34 weeks gestation of pregnancy
CPT/HCPCS: 76816

== ENCOUNTER 2019-12-03 15:03 | Outpatient (CLI) | payer MEDICAID, SELFPAY ==
[2019-11-19 13:08] VITALS: BMI 42.3
[2019-12-03] VITALS (12 sets, daily range): BP systolic 116; BP diastolic 53; PULSE 87–95; O2SAT 96–99; BMI 44.1
[2019-12-03] MEDS: Lactated Ringers 1,000 ML 999 ML IV (16:15)
--- NOTE | 2019-12-04 04:54 | OB.TRI.PN_ITS ---
Progress Notes Date of Service: 12/03/19 Progress Note: Patient presents for triage evaluation secondary to false labor FHT: 120 Moderate variability reactive no decelerations category I tracing [place]: Irregular contractions Assessment and plan: False labor patient is 1 thick posterior and high no cervical change reactive NST, reassuring maternal and status patient discharged to home to follow-up as scheduled. See problem list details for additional plan information. - Problem List (1) False labor Status: Acute Comment: 12/03 triage posterior no cervical change given IVFs Multi Select Codes - Urinary/Genital Urinary/Genital CPT Codes: 92529-37 non-stress test Interp
== END 2019-12-03 17:15 | disposition home or self-care (01) ==
LOC: WPOUT 15:04 → OBT 15:06
PROVIDERS: PCP Family Medicine; Referring Provider Obstetrics & Gynecology; Visit Provider Obstetrics & Gynecology
DX: O47.9 False labor, unspecified (principal)
CPT/HCPCS: 59025; 59050; 99218; J7120; G0378

== ENCOUNTER → 2019-12-04 | Outpatient (CLI) | payer MEDICAID, SELFPAY ==
[2019-12-04 10:32] VITALS: BMI 44.1
== END | disposition home or self-care (01) ==
LOC: LABSPEC 15:10
PROVIDERS: PCP Family Medicine; Referring Provider Nurse Practitioner Women's Health; Visit Provider Nurse Practitioner Women's Health
DX: Z34.90 Encounter for supervision of normal pregnancy, unspecified, unspecified trimester (principal)
CPT/HCPCS: 87081

== ENCOUNTER → 2019-12-18 12:57 | Outpatient (CLI) | payer MEDICAID, SELFPAY ==
[2019-12-04 10:32] VITALS: BMI 44.1
[2019-12-18 08:37] VITALS: BMI 44.1
[2019-12-18 17:08] LABS: Amphetamine Urine VISTA NEGATIVE (<1000 ng/mL); Barbiturate Urine VISTA NEGATIVE (< 200 ng/mL); Benzodiazepine Urine VISTA NEGATIVE (< 200 ng/mL); Cocaine Urine VISTA NEGATIVE (< 300 ng/mL); Ecstacy Urine VISTA NEGATIVE (< 500 ng/mL); Methadone Urine VISTA NEGATIVE (< 300 ng/mL); PCP Urine VISTA NEGATIVE (< 25 ng/mL); THC Urine VISTA NEGATIVE (< 50 ng/mL); Vista UDS pH Range 6
== END ==
PROVIDERS: PCP Family Medicine; Referring Provider Obstetrics & Gynecology; Visit Provider Obstetrics & Gynecology
DX: O23.43 Unspecified infection of urinary tract in pregnancy, third trimester (principal); F19.11 Other psychoactive substance abuse, in remission; Z11.59 Encounter for screening for other viral diseases; Z3A.00 Weeks of gestation of pregnancy not specified
CPT/HCPCS: 80307; 87086; 87088; 87635; G2023; U0003

== ENCOUNTER 2019-12-21 09:54 | Inpatient (IN) | payer MEDICAID, SELFPAY ==
[2019-10-09 10:05] VITALS: BMI 42.3
[2019-12-18 08:37] VITALS: BMI 44.1
[2019-12-21] VITALS (19 sets, daily range): BP systolic 84–108; BP diastolic 32–64; PULSE 61–87; RESP 16–18; TEMP 36.3–36.5; O2SAT 95–100; BMI 45.3
[2019-12-21] MEDS: Lactated Ringers 1,000 ML 999 ML IV (10:10)
[2019-12-21 10:22] LABS: Absolute Lymphocyte Count 2.79 X10^3/uL (0.83-4.51); Absolute Neutrophil Count 8.9 X10^3/uL (2.0-7.7); Basophil# 0.05 X10^3/uL; Basophil% 0.4 % (0-1); Eosinophils% 0.8 % (0-5); Hemoglobin 10.4 g/dL (12.0-15.0); Lymphocyte # 2.79 X10^3/ul (4.0); Lymphocyte % 22.2 % (19-41); Mean Corp Hgb Conc 30.6 g/dL (32-36); Mean Corpuscular Hgb 24.5 pg (27.0-32.0); Monocyte# 0.65 X10^3/uL; Monocyte% 5.2 % (0-10); NRBC Flagged by Analyzer 0 % (0-5); Neutrophil # 8.87 X10^3/uL (2.7-7.7); Neutrophil % 70.4 % (47-70); Platelet Count 331 K/mm3 (150-450); RBC Distribution Width CV 14.9 % (11.6-14.6); RBC Distribution Width SD 43.1 fl (35.1-43.9); Red Blood Count 4.25 M/mm3 (4.2-5.4); White Blood Count 12.6 K/mm3 (4.4-11.0)
[2019-12-21] MEDS: Acetaminophen 500 MG Tablet 1000 MG PO ×2 (10:38→17:48)
[2019-12-21] MEDS: Lactated Ringers 1,000 ML 150 ML IV (11:10)
[2019-12-21] MEDS: Sodium Citrate/Citric Acid 30 ML UDC PO (11:57)
[2019-12-21] MEDS: Cefazolin 2 GM in 0.9% Normal Saline 100 ML IV (12:04)
--- NOTE | 2019-12-21 12:14 | PCM.HPOB.BLA ---
- Problem List (1) H/O section Status: Acute Comment: plan RLTCS 12/21. covid test 12/17 (2) H/O drug abuse Status: Acute Comment: random tox screens: Negative 08/11/19 (3) Obesity affecting Status: Acute Qualifiers: Comment: 1 tm glucola nl, encouraged healthy weight gain. (4) Status: Acute Qualifiers: Comment: carrier negative , nipt low risk, and afp screening negative. anatomy reviewed. (5) Supervision of high risk , antepartum Status: Acute Comment: PRR JOANN 12/26/19 boy Nicolasa SPEEDY Oumar, Jane Nicolasa (6) Tobacco use affecting , antepartum Status: Acute Comment: encouraged cessation (7) UTI (urinary tract infection) in in third trimester Status: Acute Comment: 11/18 RX macrobid.(culture returned contaminated). Rpt culture 36 wk History and Physical Date of Admission: 12/21/19 Intake Vital Signs 12/18/19 BMI 44.1 12/18/19 Height 5 ft 12/18/19 Weight: 231 lb 2 oz 12/18/19 BMI 45.1 12/18/19 BP 124/78 H Intake Visit Reasons: 39WK OB Financial Accounting Manager Required: No Accompanied by: Is patient in pain?: No Allergies egg Allergy (Mild, Verified 12/18/19 08:33) Other adhesive tape Allergy (Verified 12/18/19 08:33) Unknown Latex, Natural Rubber Allergy (Verified 12/18/19 08:33) Hives aspirin Adverse Reaction (Verified 12/18/19 08:33) Abd cramps/diarrhea dicyclomine HCl [From Bentyl] Adverse Reaction (Verified 12/18/19 08:33) Abd cramps/diarrhea erythromycin base [Erythromycin Base] Adverse Reaction (Verified 12/18/19 08:33) Abd cramps/diarrhea naproxen Adverse Reaction (Verified 12/18/19 08:33) Abd cramps/diarrhea sulfamethoxazole [From Bactrim] Adverse Reaction (Verified 12/18/19 08:33) Abd cramps/diarrhea trimethoprim [From Bactrim] Adverse Reaction (Verified 12/18/19 08:33) Abd cramps/diarrhea Medications ranitidine HCl 150 mg tablet 150 mg PO BID #60 tab 05/01/19 [Rx Confirmed 12/18/19] vitamin#30 30 mg iron-10 mg iron-folic acid 1 mg-omg3 capsule 1 cap PO DAILY cap 05/27/19 [History Confirmed 12/18/19] Docusate Sodium [Colace] 100 mg PO DAILY 09/21/19 [History Confirmed 12/18/19] Last Menstral Period: 03/21/19 Zika: Zika virus screening: Negative : No PFSH PFSH Medical History Anemia (Acute) Back pain (Acute) Chest pain (Acute) History of drug use (Acute) Narcolepsy (Acute) Severe headache (Acute) Shortness of breath (Acute) Stomach ulcer (Acute) unusual tiredness (Acute) Surgical History History of (Acute) Hx laparoscopic cholecystectomy (Acute) Social History (Updated 12/18/19 @ 08:[address] 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 Date Name GA/Weeks Outcome Route Bth Weight Infant Gen Labor Lgth Anesthesia Del Locatn Provider FOB Unknown 2007 Oumar live - full term Unknown 2012 Jane live - full term Delivery Date: On 05/28/19 @ 18:19 Cely Agustin CPD Delivery Date: No notes to display HPI 39WK OB : Details: PATRICIO WYMAN is a 29 year old who presents for routine OB visit. OB Visit JOANN Calculator Estimated Delivery Date Method Current WG Current Estimate 12/26/19 LMP (Certain) 38w 6d Expected Delivery Route/Plan rltcs Labor Preferences- Specific Issue/Plans flu vaccine: declined tdap vaccine: given rhogam: na LARC form signed: declined movement and labor precautions reviewed. Problem list reviewed and updated with the most current plan of care details and appropriate orders placed. Relevant counseling for the gestational age provided. Continue routine care and follow up unless otherwise noted in visit notes/problem list details Initial Weight: 195 lb Date EGA Weight BP Urine Prot Glucose FHR FuHt Pres Dilation Effaced St Visit Note 06/25/19 13w 5d 195 lb 4 oz (+4 oz) 110/60 Negative Negative 160 NO Vb, LOF. FHT confirm with US. Carrier and NIPT today 07/24/19 17w 6d 206 lb (+11 lb) 108/64 150 SM- no vb lof cramping 08/11/19 20w 3d 210 lb (+15 lb) 118/70 154 0 MH-work in for lower pelvic pain, recurrent vaginal bleeding. States brown today. Good FM. See exam. Offered and refuses PT 08/21/19 21w 6d 212 lb (+17 lb) 126/70 Negative Negative 150 SM- no vb lof having cramping still 09/18/19 25w 6d 216 lb 8 oz (+21 lb 8 oz) 118/72 Negative Negative 145 26 SM- no vb lof good fm no regular ctx 10/09/19 28w 6d 220 lb (+25 lb) 114/60 140 29 SM- no vb lof good fm no regular ctx 11/12/19 33w 5d 226 lb (+31 lb) 116/58 Negative Negative 140 37 SM- no vb lof good fm no regular ctx check growth us 11/19/19 34w 5d 229 lb (+34 lb) 118/72 Negative 137 0 MH-work in for pelvic pain and pressure. Positive UA. Rx macrobid. Good FM. No VB, LOF. Has growth US in 4 days 12/04/19 36w 6d 231 lb (+36 lb) 118/76 Negative Negative 142 37 1 MH-Irreg CTX. No Vb, LOF. Good FM. GBS 12/10/19 37w 5d 230 lb (+35 lb) 116/72 Trace Negative 142 Cephalic 1.5 40 -4 MH-Irreg CTX and more pressure. NO VB, LOF. Dec FM:NST MH-Irreg CTX and more pressure. NO VB, LOF. Dec FM:NST reactive 12/18/19 38w 6d 231 lb 2 oz (+36 lb 2 oz) 124/78 Negative Negative 140 39 Cephalic SM- no vb lof good fm no regular ctx plan cs saturday ACOG First Trimester First Trimester: Discussed Second Trimester Second Trimester: Signs and Symptoms of Labor, Selecting a care provider, Reproductive Life Planning, Care Planning, Tobacco Cessation, Depression/Anxiety and Intimate Partner Violence Third Trimester Third Trimester: Pain Management Plans, Labor support person(s), Immediate Larc, Movement Monitoring and Infant Feeding No ; discussed Trial of Labor after Counseling or discussed Circumcision preference Diagnostics Diagnostics Diagnostics Glucose 1 Hr 50 gm 110 mg/dL (70-140) 10/09/19 Hgb 11.2 g/dL (12.0-15.0) L 10/09/19 Hct 34.7 % (37-47) L 10/09/19 Details: HIV: Urine Culture: Sequential Screen: NIPT Screen: ROS Const Reports system reviewed and no additional complaints, except as docu Card Reports system reviewed and no additional complaints, except as docu Resp Reports system reviewed and no additional complaints, except as docu GI Reports system reviewed and no additional complaints, except as docu, Reports nausea Reports system reviewed and no additional complaints, except as docu Musc Reports system reviewed and no additional complaints, except as docu Exam Const General: cooperative, healthy appearing, comfortable, anxious HENCA Head: normal to inspection Nose: external nose normal Face and sinus: normal facial exam Neck Neck: normal visual inspection, full ROM, no lymphadenopathy Thyroid: thyroid normal Chest Chest palpation & inspection: normal inspection of the chest Resp Effort & Inspection: normal respiratory effort GI Inspection: normal to inspection Palpation: soft, other (gravid uterus) Other: infant vertex and appropriate size for gestational age Other: Cervical Exam: Extrem General: pedal edema Results POC Urinalysis 2 Dip (Clinic) Office Urine Glucose Negative Last Edit by Ivone Taylor on 12/18/19 08:32 Office Urine Protein Negative Last Edit by Ivone Taylor on 12/18/19 08:32 Assessment & Plan Problems 1. False labor O47.9 12/03 triage posterior no cervical change given IVFs 2. UTI (urinary tract infection) in in third trimester O23.43 11/18 RX macrobid.(culture returned contaminated). Rpt culture 36 wk 3. Supervision of high risk , antepartum O09.90 PRR JOANN 12/26/19 boy Nicolasa Oseguera, Jane Nicolasa 4. Tobacco use affecting , antepartum O99.330 encouraged cessation 5. Obesity affecting in first trimester O99.211 1 tm glucola nl, encouraged healthy weight gain. 6. H/O drug abuse F19.11 random tox screens: Negative 08/11/19 7. H/O section Z98.891 plan RLTCS 12/21. covid test 12/17 8. 38 weeks gestation of Z3A.38 carrier negative , nipt low risk, and afp screening negative. anatomy reviewed. Plan plan RLTCS After discussing the patient's diagnosis and treatment plan options, patient wishes to proceed with surgical management. I have discussed with the patient the risks, benefits, and alternatives of the procedure which include but are not limited to risks of anesthesia, bleeding, infection, possible damage to bowel, bladder, or surrounding vasculature which could lead to additional surgery to evaluate any complications. Patient agrees to procedure and wishes to proceed. ACOG/uptodate references given for additional information regarding procedure. Orders Orders: POC Urinalysis 2 Dip (Clinic) Today Culture, Urine Today O23.43 Coding Level of Care Code OB Routine Diagnoses False labor O47.9 UTI (urinary tract infection) in in third trimester O23.43 Supervision of high risk , antepartum O09.90 Tobacco use affecting , antepartum O99.330 Obesity affecting in first trimester O99.211 ??Trimester: first trimester H/O drug abuse F19.11 H/O section Z98.891 38 weeks gestation of Z3A.38 ??Weeks of gestation: 38 weeks
--- NOTE | 2019-12-21 12:21 | OP.PCM_ITS ---
Problem List (1) H/O section Status: Acute Comment: plan RLTCS 12/21. covid test 12/17 (2) H/O drug abuse Status: Acute Comment: random tox screens: Negative 08/11/19 (3) Obesity affecting Status: Acute Qualifiers: Comment: 1 tm glucola nl, encouraged healthy weight gain. (4) Status: Acute Qualifiers: Comment: carrier negative , nipt low risk, and afp screening negative. anatomy reviewed. (5) Supervision of high risk , antepartum Status: Acute Comment: PRR JOANN 12/26/19 lynne Oseguera, Jane Nicolasa (6) Tobacco use affecting , antepartum Status: Acute Comment: encouraged cessation (7) UTI (urinary tract infection) in in third trimester Status: Acute Comment: 11/18 RX macrobid.(culture returned contaminated). Rpt culture 36 wk Delivery Classification: Scheduled Final JOANN: 12/26/19 Gestational age: 39 Weeks and 2 Days business analysis specialist: Buddy Lynch Type of Anesthesia:: Spinal Special Medications: none Implants Used: none Date of Procedure: 12/21/19 Pre-Operative Diagnosis: prev cs x 2 Post-Operative Diagnosis: same plus thinning lower uterine segment Indications for : Repeat Elective Description of Procedure: Spinal anesthesia was placed without difficulty. Do catheter was placed. The patient was placed in the dorsal supine position with leftward tilt. Patient was prepped and draped in the normal sterile fashion. Pfannenstiel skin incision was made with the scalpel and carried through to the underlying layer of fascia with the scalpel. Fascia was nicked in the midline and the incision extended laterally. The rectus bellies were dissected off superiorly and inferiorly with out complication both sharply and bluntly. The peritoneum was entered digitally. The incision was stretched and a low transverse uterine incision was made with the scalpel. the lower uteirne segment was noted to be significantly thinned but intact. The infant's head was delivered atraumatically followed by the anterior and posterior shoulders without complication the rest of the delivered. The cord was clamped and cut and the infant was handed off to awaiting nurse. The placenta was delivered spontaneously immediately following and was noted to be intact and have a three-vessel cord. The uterus was exteriorized cleared of all clots and debris, and the incision was closed in a double layer closure using #1 Monocryl. The ovaries and fallopian tubes were noted to be within normal limits. The uterus was returned to the maternal abdomen and gutters were cleared of all clots and debris. The peritoneum was closed with 3-0 Monocryl in a running fashion. Gloves were changed prior to fascial closure. Fascia was closed with 0 PDS in a running fashion. Subcutaneous tissue was copiously irrigated and the skin was closed with 3-0 Monocryl in a subcuticular fashion. Mepilex dressing was applied without complication. Patient was taken to recovery in stable condition. It was discussed with the patient that based on the clinical information obtained during this encounter, combined with her history, at this time I would recommend cesareans for future deliveries if further pregnancies are desired. Amniotic Membrane Rupture Type: Artificial Amniotic Fluid Description: Clear Placenta Disposition: [facility] Drain: Do to straight drain Fluids Replaced: crystalloid Cord Entanglement: None Cord Vessel Description: 3 Vessels Esitmated Blood Loss (ml): 800 Gender: Male Delayed cord clamping: Yes Antibiotic Given: Ancef 2 grams IV x1 Pt instructed on risks of surgery: Bleeding, Anesthesia Risks, Infection, Need for Future C-Sections, Injury to surrounding structure(s) including bowel and bladder Complications: None - Admit VTE Documentation VTE Present on Admission: No VTE Mechan Device Prophylaxis: SCD's Multi Select Codes - Urinary/Genital Urinary/Genital CPT Codes: 11873 delivery+ Care([facility])
[2019-12-21] MEDS: Oxytocin 30 units/NS 500 ml 30 UNITS/500 ML IV.SOLN 167 UNITS IV (13:30)
--- NOTE | 2019-12-21 15:23 | CPS ---
started by nursing.
[2019-12-21] MEDS: Lactated Ringers 1,000 ML 100 ML IV (16:31)
[2019-12-21] MEDS: Ondansetron 4 MG/2 ML Vial IV (16:43)
[2019-12-21] MEDS: Ketorolac 30 MG/ML Syringe IV (17:48)
[2019-12-21] MEDS: proCHLORPERazine 10 MG/2 ML Vial IV (19:12)
[2019-12-21] MEDS: Lactated Ringers 500 ML IV.SOLN. 1000 ML IV (20:04)
[2019-12-21 20:14] LABS: Hemoglobin 8.9 g/dL (12.0-15.0)
[2019-12-22] VITALS (10 sets, daily range): BP systolic 89–109; BP diastolic 35–59; PULSE 62–89; RESP 15–20; TEMP 36.4–36.7; O2SAT 95–99
[2019-12-22] MEDS: Acetaminophen 500 MG Tablet 1000 MG PO ×4 (00:53→18:18)
[2019-12-22] MEDS: Enoxaparin 40 MG/0.4 ML Syringe SC ×3 (00:55→21:59)
[2019-12-22] MEDS: Ketorolac 30 MG/ML Syringe IV ×2 (01:10→06:01)
[2019-12-22] MEDS: 0.9% Saline Lock 10 ML Syringe IV ×2 (01:10→06:01)
[2019-12-22] MEDS: Lactated Ringers 1,000 ML 100 ML IV (01:16)
[2019-12-22 06:48] LABS: Hematocrit 26.7 % (37-47); Mean Corpuscular Hgb 24.3 pg (27.0-32.0); Mean Corpuscular Volume 81.2 fL (81-99); Mean Platelet Vol. 10.6 fl (6.2-12.0); Platelet Count 268 K/mm3 (150-450); RBC Distribution Width CV 15.4 % (11.6-14.6); RBC Distribution Width SD 45.3 fl (35.1-43.9); Red Blood Count 3.29 M/mm3 (4.2-5.4); White Blood Count 10.5 K/mm3 (4.4-11.0)
--- NOTE | 2019-12-22 06:55 | NURSING ---
Pt. states that she does not have an allergy to eggs, she just has an adverse reaction of upset stomach based on how eggs are cooked. She states that over easy or dippy eggs make her stomach hurt, but deviled eggs, scrambled eggs, other cooked eggs are okay to eat. Clarified with dietary and this RN.
--- NOTE | 2019-12-22 07:00 | NURSING ---
Pt. has c/o of right shoulder and arm pain. Reflexes and range of motion equal and bilateral between both arms. Pulse 2+ and bounding, appropriate, 70 bpm. Pt. given mi-acid previously and this RN explained that it could be gas pain from surgery. Pt. encouraged to ambulate today to assist with passing gas. Pt. reports she has had flatulence since delivery. Will continue to monitor.
--- NOTE | 2019-12-22 08:40 | PCM.PN.OB ---
Subjective: doing well no complaints pain controlled no CP SOB N V ambulating well tolerating po lochia moderate, going well - Physical Exam Vitals/I&O's: Vital Signs Temp Pulse Resp BP Pulse Ox 97.8 F 74 18 96/40 L 99 12/22/19 08:20 12/22/19 08:20 12/22/19 08:20 12/22/19 08:20 12/22/19 06:57 Oxygen Delivery Method Room Air Weight: 232 lb 5.875 oz Body Mass Index (BMI) 45.3 Intake and Output for Last 24 Hours 12/20/19 12/21/19 12/22/19 23:59 23:59 23:59 Intake Total 3001.67 / 3001.67 990.00 / 990.00 Output Total 1450 / 1450 250 / 250 Balance 1551.67 / 1551.67 740.00 / 740.00 General: Alert, Oriented x3 Laboratory Results 12/21/19 10:10: WBC 12.6 H, RBC 4.25, Hgb 10.4 L, Hct 34.0 L, MCV 80.0 L, MCH 24.5 L, MCHC 30.6 L, RDW Std Deviation 43.1, RDW Coeff of [place] 14.9 H, Plt Count 331, MPV 11.0, Immature Gran % (Auto) 1.000 H, Neut % (Auto) 70.4 H, Lymph % (Auto) 22.2, [place] % (Auto) 5.2, Eos % (Auto) 0.8, Baso % (Auto) 0.4, Absolute Neuts (auto) 8.9 H, Absolute Lymphs (auto) 2.79, Nucleated RBC % 0 12/21/19 10:10: Blood Type O POSITIVE, Antibody Screen NEGATIVE 12/21/19 20:05: Hgb 8.9 L 12/22/19 06:35: WBC 10.5, RBC 3.29 L, Hgb 8.0 L, Hct 26.7 L, MCV 81.2, MCH 24.3 L, MCHC 30.0 L, RDW Std Deviation 45.3 H, RDW Coeff of [place] 15.4 H, Plt Count 268, MPV 10.6 Current Medications Acetaminophen (Tylenol) 1,000 mg PO Q6 GARY Last Admin: 12/22/19 06:00 Dose: 1,000 mg Documented by: Bisacodyl (Dulcolax) 10 mg RECTAL UD PRN PRN Reason: If no BM Diphenhydramine HCl (Benadryl) 25 mg PO Q6H PRN PRN PRN Reason: ITCHING Stop: 12/22/19 13:37 Enoxaparin Sodium (Lovenox) 40 mg SC BID [facility] Last Admin: 12/22/19 00:55 Dose: 40 mg Documented by: Famotidine (Pepcid) 20 mg PO BID [facility] Last Admin: 12/21/19 22:31 Dose: Not Given Documented by: Hydrocortisone (Hytone) 1 applic TOPICAL TID PRN PRN; Protocol PRN Reason: Discomfort Lactated Ringer's () 1,000 mls @ 100 mls/hr IV .Q10H [facility] Last Infusion: 12/22/19 06:59 Dose: Infused Documented by: Naloxone HCl 4 mg/ Dextrose 504 mls @ 0 mls/hr IV .Q0M PRN; Protocol PRN Reason: Respiratory depression Ketorolac Tromethamine (Toradol (Bkc)) 30 mg IV Q6 [facility] Stop: 12/22/19 12:01 Last Admin: 12/22/19 06:01 Dose: 30 mg Documented by: Methylergonovine Maleate (Methergine) 0.2 mg IM X1 PRN PRN Reason: Uterine Atony Metoclopramide HCl (Reglan) 10 mg IV Q6 PRN PRN Reason: BREAKTHROUGH NAUSEA Nalbuphine HCl (Nubain) 5 mg IV Q3H PRN PRN PRN Reason: ITCHING Stop: 12/22/19 13:37 Naloxone HCl (Narcan) 0.02 mg IV Q1M PRN PRN Reason: RR <10 and pt unresponsive Naproxen (Naprosyn) 500 mg PO Q8 [facility] Last Admin: 12/22/19 05:30 Dose: Not Given Documented by: Ondansetron HCl (Zofran) 4 mg IV Q4H PRN PRN PRN Reason: Nausea Last Admin: 12/21/19 16:43 Dose: 4 mg Documented by: Oxycodone HCl (Oxyir) 5 - 10 mg PO Q4H PRN PRN PRN Reason: Pain Score 4-10/10 Multivit/Folic Acid/Iron (Prenatabs Fa) 1 tablet PO DAILY@1200 GARY Prochlorperazine Edisylate (Compazine Iv) 10 mg IV Q6H PRN PRN PRN Reason: NAUSEA Last Admin: 12/21/19 19:12 Dose: 10 mg Documented by: Senna/Docusate Sodium (Senokot-S, Sue-Colace) 0 tablet PO DAILY GARY Simethicone (Mylicon) 80 mg PO PCHS PRN PRN Reason: Indigestion/stomach pain Last Admin: 12/22/19 06:27 Dose: 80 mg Documented by: Sodium Chloride () 5 - 15 ml IV UD PRN PRN Reason: SALINE FLUSH Last Admin: 12/22/19 06:01 Dose: 10 ml Documented by: Medical Necessity - Tobacco Use Smoking Status: Current every day smoker Assessment/Plan All Active Problems (Last Reviewed 12/18/19 @ 08:33 by Ivone Taylor) UTI (urinary tract infection) in in third trimester (Acute) Supervision of high risk , antepartum (Acute) Tobacco use affecting , antepartum (Acute) Obesity affecting (Acute) H/O drug abuse (Acute) H/O section (Acute) (Acute) 26 weeks gestation of (Resolved) Acute bronchitis (Resolved) False labor (Resolved) False labor (Resolved) High risk due to recurrent miscarriage (Resolved) Low lying placenta nos or without hemorrhage, second trimester (Resolved) s/p LTCS PPD # 1 1. routine post care 2. breast feeding- support given 3. rh positive 4. rubella immune
--- NOTE | 2019-12-22 08:41 | DCINST_ITS ---
Discharge Diet: No Restrictions Discharge Activity: May Not Drive - for 2 weeks, May not drive while taking narcotic pain medications., May Shower, May Take a Tub Bath - in 7 days May resume sexual activity in: 4-6 weeks Lifting Restrictions: 20 pounds Additional Activity Instructions:: Nothing in the vagina for 4-6 weeks. You may return to work/school in 6 weeks. Call your doctor if your incision/area has: Continuous Slow Oozing, Sudden Increased Bleeding, Increased Pain/ Swelling, Increased Redness, Foul Smelling Discharge Call your doctor if you observe: Fever of 101 or Higher, Using more than one pad per hour - for 2 hours Suture Line Care: Avoid Pulling/Pushing, Avoid Pinching/Bending Cleanse incision/area with: Keep Dressing Clean & Dry Additional Instructions: If you experience any of the following, contact your healthcare provider. * Bleeding that soaks a pad every hour for 2 hours * Fever 100.4 or higher * Unrelieved incision or abdominal pain * Swelling, redness, discharge or bleeding from your incision or episiotomy site * Your incision begins to separate * Problems urinating (including inability to urinate or burning while urinating). * Visual changes * Severe headache * Flu-like symptoms * Pain or redness in one of both of your breasts * Pain, warmth, tenderness or swelling in your legs, especially the calf area * Frequent nausea and vomiting * Symptoms of depression or anxiety If you experience any of the following, call 911 or go to the nearest Emergency Room. * Chest pain * Problems breathing * Seizure activity * Partial or complete paralysis of a body part, slurred speech, weakness or drooping of the face, or a sudden inability to walk or hold your balance Allergies/Adverse Reactions: Allergies egg Allergy (Mild, Verified 12/21/19 10:42) Other adhesive tape Allergy (Verified 12/21/19 10:42) Unknown Latex, Natural Rubber Allergy (Verified 12/21/19 10:42) Hives aspirin Adverse Reaction (Verified 12/21/19 10:42) Abd cramps/diarrhea dicyclomine HCl [From Bentyl] Adverse Reaction (Verified 12/21/19 10:42) Abd cramps/diarrhea erythromycin base [Erythromycin Base] Adverse Reaction (Verified 12/21/19 10:42) Abd cramps/diarrhea naproxen Adverse Reaction (Verified 12/21/19 10:42) Abd cramps/diarrhea sulfamethoxazole [From Bactrim] Adverse Reaction (Verified 12/21/19 10:42) Abd cramps/diarrhea trimethoprim [From Bactrim] Adverse Reaction (Verified 12/21/19 10:42) Abd cramps/diarrhea Medications to take at Discharge vitamin#30 30 mg iron-10 mg iron-folic acid 1 mg-omg3 capsule 1 cap PO DAILY cap 05/27/19 Docusate Sodium [Colace] 100 mg PO DAILY 09/21/19 Ranitidine HCl 150 mg PO BID 12/21/19 Naproxen [Naprosyn] 250 - 500 mg PO Q8H PRN PRN #30 tab 12/22/19 Oxycodone HCl/Acetaminophen [Percocet 5-325] 1 - 2 tablet PO Q6H PRN PRN 7 Days #15 tablet 12/22/19 The following prescriptions were given: Naproxen [Naprosyn] 250 - 500 mg PO Q8H PRN PRN #30 tab PRN Reason: MILD PAIN Transmission Status: Pending to [facility] Oxycodone HCl/Acetaminophen [Percocet 5-325] 1 - 2 tablet PO Q6H PRN PRN 7 Days #15 tablet PRN Reason: Pain Transmission Status: Sent to [facility] Follow-Up: Call to make an appointment with your doctor for an incision check in 1-2 weeks. You will also need a 6 week post- follow up appointment. Test results from this visit will be discussed in further detail at your follow- up appointment, if applicable. Please Follow Up With: Cely Agustin MD - Call to make an appointment for an incision check in 1-2 [phone] When: You will need a post- check in 6 weeks. Primary Care Physician: Valerio Maynard MD [Primary Care Provider] -
[2019-12-22] MEDS: Senna/Docusate Sodium 1 Tablet PO (10:17)
[2019-12-22] MEDS: Famotidine 20 MG Tablet PO (10:18)
[2019-12-22] MEDS: Prenatal Vits Tablet 1 TABLET PO (11:58)
--- NOTE | 2019-12-22 12:17 | CASEMGMT ---
Social Work Assessment Labor and Delivery Unit Date of Referral: 12/21/2019 Time of Referral: 10:14am Referred By: Dr. Cely Agustin Date of Intervention: 12/22/2019 Time of Intervention: 12:17pm Reason for Referral: Mother of baby (MOB) with history of Depression (PPD), Anxiety, and drug abuse. History obtained from: MOB, Chart, Nursing staff, and Father of baby (FOB). Household composition: MOB, TANIA (Nicolasa Spear) live together in a private home that they rent with daughter Oumar (age 12), Daughter Jane (age 6) and FOB?s daughter, Cayetano (age 4) and now this , Nicolasa Spear. Patient's parent/guardian status: MOB and FOB have been for 1 year and ?together? for ?about that time? per MOB. Medical History: MOB with a history of prior to infant . MOB with a history of PPD and Anxiety. MOB with planned with this . born on 12/21/2021 with weight of 3290g and apgars of 8 at 1min. and 9 at 5min. Educational Status: MOB states to have obtained GED and to have no concerns for comprehension or understanding. Financial Status: No concerns. FOB recently laid off at work and is looking for another job. MOB and FOB state to not be concerned about finances. Infant Supplies: MOB states to have all needed supplies for in the home including bottles, formula, crib, car seat, clothing, diapers. MOB plans to bottle feed infant and states ?it is going well.? Childcare/Caregiver(s): MOB plans to be primary caregiver for infant. MOB states that a friend will be living with MOB/FOB to assist with care of other children and support for MOB while FOB is working. Other children are currently being cared for my MOB?s mother while MOB/FOB are at hospital with . Transportation: MOB denies any transportation concerns. Programs/Agencies Involved: MOB states to have just been accepted for [facility]. Active with [employer] services for food stamps and medical. Active with [facility] services and has an appointment set up for this coming Saturday. Children Services/Legal Issues: Reports that there was a case open 1.5 years ago that consisted of one visit and then the case of closed. MOB states [facility] and that the complaints were not ?valid.? MOB denies any current children services case or legal issues. MOB states to have a history of legal charges ?years ago.? Behavioral Health Issues: Mental Health History: MOB confirms history of PPD, Depression, and Anxiety. MOB states to have taken medication to help with PPD with first infant and to have not needed medication with second . MOB states history of counseling ?years ago? but no active counseling services. MOB states aware of own signs and symptoms of PPD and plan to call doctor if unable to manage possible PPD on own. MOB states to have positive support and coping skills. Substance Use History: MOB reports history of meth use ?over 8 years ago? but no active use. MOB smoke tobacco daily and states there is ?no smoking in the home.? Maternal and Drug Screens: MOB with negative tox screen on admission and three other tox screens during . No tox screens PHQ9: Did not trigger. Family/Social Stressors: MOB denies any current stressors. Support Systems: MOB states to have support from FOB, MOB?s mother and stepfather along with MOB?s friend. Depression and Anxiety/Shaken Baby/Safe Sleeping: MOB able to provide appropriate responses to Shaken baby risk and Safe Sleeping. MOB aware of own signs and symptoms of PPD and MOB?s risk for this. MOB provided with local community resources, shaken baby info, and safe sleeping. MOB declining Help Me Grow referral and states to be aware of how to make self referral if need would arise. ASSESSMENT: Met with MOB, FOB and in room. resting in bassinet during assessment. MOB did begin to cry during assessment. FOB picked up from bassinet and handed to MOB. FOB assisting with getting bottle and handing to MOB. MOB able to manage feeding while continuing to speak with this social services specialist. MOB and FOB holding appropriately. MOB states to have a connection with to be to ?happy? that is here. MOB states that was planned and to not have any plan for control as ?we are .? MOB states no concerns on returning to home. PLAN: to discharge to home with MOB/FOB and rest of family. No other services requested or indicated. Kandy STAHL, JON
[2019-12-22] MEDS: Naproxen 250 MG Tablet 500 MG PO ×2 (14:17→21:59)
[2019-12-22] MEDS: oxyCODONE 5 MG Tablet PO ×2 (16:13→18:18)
[2019-12-23] MEDS: Acetaminophen 500 MG Tablet 1000 MG PO ×2 (00:55→06:29)
[2019-12-23 01:08] VITALS: BP 102/34; PULSE 78; RESP 16; TEMP 36.6
[2019-12-23] MEDS: Naproxen 250 MG Tablet 500 MG PO (06:28)
--- NOTE | 2019-12-23 07:58 | PN.OBGYN_ITS ---
Subjective: doing well no complaints pain controlled no CP SOB N V ambulating well tolerating po lochia moderate, going well - Physical Exam Vitals/I&O's: Vital Signs Temp Pulse Resp BP Pulse Ox 97.8 F 78 16 102/34 L 98 12/23/19 01:08 12/23/19 01:08 12/23/19 01:08 12/23/19 01:08 12/22/19 12:00 Oxygen Delivery Method Room Air Weight: 232 lb 5.875 oz Body Mass Index (BMI) 45.3 Intake and Output for Last 24 Hours 12/21/19 12/22/19 12/23/19 23:59 23:59 23:59 Intake Total 3001.67 / 3001.67 990.00 / 990.00 Output Total 1450 / 1450 1000 / 1000 Balance 1551.67 / 1551.67 -10.00 / -10.00 General: Alert, Oriented x3 Current Medications Acetaminophen (Tylenol) 1,000 mg PO Q6 [facility] Last Admin: 12/23/19 06:29 Dose: 1,000 mg Documented by: Bisacodyl (Dulcolax) 10 mg RECTAL UD PRN PRN Reason: If no BM Enoxaparin Sodium (Lovenox) 40 mg SC BID [facility] Last Admin: 12/22/19 21:59 Dose: 40 mg Documented by: Famotidine (Pepcid) 20 mg PO BID [facility] Last Admin: 12/22/19 22:00 Dose: Not Given Documented by: Hydrocortisone (Hytone) 1 applic TOPICAL TID PRN PRN; Protocol PRN Reason: Discomfort Naloxone HCl 4 mg/ Dextrose 504 mls @ 0 mls/hr IV .Q0M PRN; Protocol PRN Reason: Respiratory depression Methylergonovine Maleate (Methergine) 0.2 mg IM X1 PRN PRN Reason: Uterine Atony Metoclopramide HCl (Reglan) 10 mg IV Q6 PRN PRN Reason: BREAKTHROUGH NAUSEA Naloxone HCl (Narcan) 0.02 mg IV Q1M PRN PRN Reason: RR <10 and pt unresponsive Naproxen (Naprosyn) 500 mg PO Q8 [facility] Last Admin: 12/23/19 06:28 Dose: 500 mg Documented by: Ondansetron HCl (Zofran) 4 mg IV Q4H PRN PRN PRN Reason: Nausea Last Admin: 12/21/19 16:43 Dose: 4 mg Documented by: Oxycodone HCl (Oxyir) 5 - 10 mg PO Q4H PRN PRN PRN Reason: Pain Score 4-10/10 Last Admin: 12/22/19 18:18 Dose: 5 mg Documented by: Multivit/Folic Acid/Iron (Prenatabs Fa) 1 tablet PO DAILY@1200 GARY Last Admin: 12/22/19 11:58 Dose: 1 tablet Documented by: Prochlorperazine Edisylate (Compazine Iv) 10 mg IV Q6H PRN PRN PRN Reason: NAUSEA Last Admin: 12/21/19 19:12 Dose: 10 mg Documented by: Senna/Docusate Sodium (Senokot-S, Sue-Colace) 0 tablet PO DAILY [facility] Last Admin: 12/22/19 10:17 Dose: 1 tablet Documented by: Simethicone (Mylicon) 80 mg PO HS PRN PRN Reason: Indigestion/stomach pain Last Admin: 12/22/19 06:27 Dose: 80 mg Documented by: Sodium Chloride () 5 - 15 ml IV UD PRN PRN Reason: SALINE FLUSH Last Admin: 12/22/19 06:01 Dose: 10 ml Documented by: Medical Necessity - Tobacco Use Smoking Status: Current every day smoker Assessment/Plan All Active Problems (Last Reviewed 12/18/19 @ 08:33 by Ivone Taylor) UTI (urinary tract infection) in in third trimester (Acute) Supervision of high risk , antepartum (Acute) Tobacco use affecting , antepartum (Acute) Obesity affecting (Acute) H/O drug abuse (Acute) H/O section (Acute) (Acute) 26 weeks gestation of (Resolved) Acute bronchitis (Resolved) False labor (Resolved) False labor (Resolved) High risk due to recurrent miscarriage (Resolved) Low lying placenta nos or without hemorrhage, second trimester (Resolved) s/p LTCS PPD # 2 1. routine post care 2. breast feeding- support given 3. rh positive 4. rubella immune
[2019-12-23 08:15] VITALS: BP 102/39; PULSE 70; RESP 18; TEMP 36.4
== END 2019-12-23 08:45 | disposition home or self-care (01) | DRG 540 ==
PROVIDERS: Admitting Provider Obstetrics & Gynecology; PCP Family Medicine; Visit Provider Obstetrics & Gynecology
PROC: 10D00Z1 Extraction of Products of Conception, Low, Open Approach (ICD-10-PCS; CPT 59514; principal; 2019-12-21 11:45)
DX: O34.211 Maternal care for low transverse scar from previous cesarean delivery (principal); O75.3 Other infection during labor; Z11.59 Encounter for screening for other viral diseases; O99.334 Smoking (tobacco) complicating childbirth; F17.200 Nicotine dependence, unspecified, uncomplicated; O99.214 Obesity complicating childbirth; E66.9 Obesity, unspecified; Z3A.39 39 weeks gestation of pregnancy; Z37.0 Single live birth
CPT/HCPCS: 36415; 80307; 85018; 85025; 85027; 86850; 86900; 86901; 87086; 87088; 87635; 99218; 99251; G2023; J7120; A4216; G0378; G0463; J2405; U0003

== ENCOUNTER → 2020-04-06 14:21 | Outpatient (CLI) | payer MEDICAID, SELFPAY ==
[2020-02-05 11:11] VITALS: BMI 45.3
[2020-04-06 15:09] LABS: Absolute Lymphocyte Count 3.69 X10^3/uL (0.83-4.51); Absolute Neutrophil Count 6.1 X10^3/uL (2.0-7.7); Basophil# 0.06 X10^3/uL; Basophil% 0.6 % (0-1); Eosinophil# 0.12 X10^3/uL; Eosinophils% 1.1 % (0-5); Hematocrit 41.6 % (37-47); Hemoglobin 12.4 g/dL (12.0-15.0); Lymphocyte # 3.69 X10^3/ul (4.0); Mean Corp Hgb Conc 29.8 g/dL (32-36); Mean Corpuscular Hgb 22.7 pg (27.0-32.0); Mean Corpuscular Volume 76.1 fL (81-99); Mean Platelet Vol. 10.7 fl (6.2-12.0); Monocyte# 0.51 X10^3/uL; Monocyte% 4.8 % (0-10); NRBC Flagged by Analyzer 0 % (0-5); Neutrophil # 6.14 X10^3/uL (2.7-7.7); Neutrophil % 58.3 % (47-70); Platelet Count 404 K/mm3 (150-450); RBC Distribution Width CV 18.1 % (11.6-14.6); RBC Distribution Width SD 47.6 fl (35.1-43.9); Red Blood Count 5.47 M/mm3 (4.2-5.4); White Blood Count 10.5 K/mm3 (4.4-11.0)
[2020-04-06 16:03] LABS: hCG Titer Quant., Serum < 1 mIU/mL (1-3)
== END ==
PROVIDERS: PCP Family Medicine; Referring Provider Obstetrics & Gynecology; Visit Provider Obstetrics & Gynecology
DX: N93.9 Abnormal uterine and vaginal bleeding, unspecified (principal)
CPT/HCPCS: 36415; 84702; 85025

== ENCOUNTER 2022-04-03 17:09 | Emergency (ER) | payer MEDICAID, SELFPAY ==
[2022-04-03 17:10] VITALS: BP 109/58; PULSE 85; RESP 14; TEMP 36.8; O2SAT 99; BMI 43.4
--- NOTE | 2022-04-03 18:28 | ED.VIS.BACK ---
HPI History of Present Illness Chief Complaint: Back Informant: patient Onset/Context/Timing Onset: Today Injury: lifting and twisting Current Severity: Moderate Maximum Severity: Moderate Narrative Narrative: Patient present secondary to back pain. She states that he had flipped the couch over and remove the legs. They sat the couch back up. She twisted to shrimp picker her 2-year-old and sit him on the sofa when she felt something tight in her back. There was no fall or direct injury. She complains of pain across her low back and into the buttocks bilaterally. Pain does not shoot down her legs. Patient has had back problems in the past. She denies any history of injections or surgeries. She did take Tylenol prior to arrival. [facility] Medical History Anemia Back pain Chest pain History of drug use Narcolepsy Severe headache Shortness of breath Stomach ulcer unusual tiredness Home Medications etonogestrel 68 mg subdermal implant (Nexplanon) 1 implant subdermal ONCE 02/05/20 [History Last Taken Unknown] cyclobenzaprine 10 mg tablet 10 mg PO BID PRN muscle spasm #10 tabs 04/03/22 [Rx Last Taken Unknown] hydrocodone-acetaminophen 5-325mg 5mg-325mg 1 tab PO Q6H PRN pain 3 days #10 tabs 04/03/22 [Rx Last Taken Unknown] ibuprofen 600 mg tablet 600 mg PO Q8H PRN PRN pain #20 tabs 04/03/22 [Rx Last Taken Unknown] lidocaine 5 % topical patch (Lidoderm) 1 patch topical DAILY #15 ea 04/03/22 [Rx Last Taken Unknown] prednisone 20 mg tablet 60 mg PO DAILY #15 tabs 04/03/22 [Rx Last Taken Unknown] Allergy/AdvReac Type Severity Reaction Status Date / Time egg Allergy Mild Other Verified 04/03/22 17:10 adhesive tape Allergy Unknown Verified 04/03/22 17:10 Latex, Natural Rubber Allergy Hives Verified 04/03/22 17:10 aspirin AdvReac Abd Verified 04/03/22 17:10 cramps/diarrhea dicyclomine HCl [From Bentyl] AdvReac Abd Verified 04/03/22 17:10 cramps/diarrhea erythromycin base AdvReac Abd Verified 04/03/22 17:10 [Erythromycin Base] cramps/diarrhea naproxen AdvReac Abd Verified 04/03/22 17:10 cramps/diarrhea sulfamethoxazole AdvReac Abd Verified 04/03/22 17:10 [From Bactrim] cramps/diarrhea trimethoprim [From Bactrim] AdvReac Abd Verified 04/03/22 17:10 cramps/diarrhea Surgical History History of Hx laparoscopic cholecystectomy Social History Smoking Status: Current every day smoker tobacco type: cigarettes alcohol intake: never substance use type: does not use and former substance user caffeine: Yes what type of physical activity do you participate in: none seatbelt use: always do you feel safe at home: Yes additional social history: Nicolasa- works at [employer] 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 ROS ROS ED Constitutional Constitutional ED: Denies chills or fever(s) Eyes Eyes: Denies change in vision or discharge from eye(s) ENT ENT ED: Denies discharge from eye(s), rhinorrhea or sore throat Cardiovascular Cardiovascular: Denies chest pain or palpitations Respiratory/Chest Respiratory/Chest: Denies cough or dyspnea Gastrointestinal Gastrointestinal: Denies abdominal pain, diarrhea, nausea or vomiting Genitourinary Genitourinary ED: Denies difficulty urinating or dysuria Musculoskeletal Musculoskeletal: Reports back pain; Denies extremity pain Integumentary Denies Abrasions or rash Neurologic Neurologic: Denies headache(s) or weakness Allergic/Immunologic Allergic/Immunologic ED: Denies lip swelling or urticaria EXAM Physical Exam Const Vital Signs: 04/03/22 17:10 Temperature 98.2 F Temperature Source Temporal Pulse Rate 85 Respiratory Rate 14 Blood Pressure 109/58 L Blood Pressure Mean 75 Pulse Ox 99 Oxygen Delivery Method Room Air Positive well nourished and well developed General Appearance ED: well developed HEENT Reports normocephalic and head/scalp atraumatic Eyes PERRL and EOMs intact bilaterally Neck supple Chest Wall inspection of chest normal and palpation of chest normal Resp normal respiratory effort and clear to auscultation bilaterally Cardio regular rate and regular rhythm GI normal to inspection, nondistended, normoactive bowel sounds Palpation: soft Back/Spine Back/Spine Narrative: Reproducible tenderness in the bilateral lumbar paraspinal muscles. Mild tenderness midline. No erythema or overlying skin changes. Extremity normal to inspection Neuro oriented x3 and no sensory deficits noted Sensorium / Orientation: alert Motor Exam: strength 5/5 throughout Psych mental status grossly normal Skin no rashes or lesions noted MDM MDM MDM Narrative Medical decision making narrative: OARRS report reviewed with no narcotics in the last year. Patient will be treated with ibuprofen, Flexeril, [place], prednisone. Lidoderm patches will be prescribed. With no direct trauma or injury to her back I do not feel imaging is beneficial. Discharge Plan Triage Chief Complaint: Back ED Provider: Milla Pendleton Dx/Rx/DC Orders Clinical Impression: Lumbar strain Instructions: ED Back Spasm, No Trauma, ED Back and Neck Pain, General Prescriptions: New ibuprofen 600 mg tablet 600 mg PO Q8H PRN PRN (Reason: pain) Qty: 20 0RF hydrocodone-acetaminophen 5-325 mg tablet 1 tab PO Q6H PRN (Reason: pain) 3 Days Qty: 10 0RF cyclobenzaprine 10 mg tablet 10 mg PO BID PRN (Reason: muscle spasm) Qty: 10 0RF prednisone 20 mg tablet 60 mg PO DAILY Qty: 15 0RF lidocaine [Lidoderm] 5 % adhesive patch,medicated 1 patch topical DAILY Qty: 15 0RF Rx Instructions: leave on most painful area for up to 12 hrs No Action Nexplanon 68 mg implant 1 implant subdermal ONCE Rx Instructions: as a single dose Primary Care Provider: Valerio Maynard Referrals: Valerio Maynard MD [Primary Care Provider] - 5-7 Days Disposition Disposition: Home, Self Care
[2022-04-03] MEDS: predniSONE 20 MG Tablet 60 MG PO (18:42)
[2022-04-03] MEDS: cycloBENZAPRine HCl 10 MG Tablet PO (18:42)
[2022-04-03] MEDS: Lidocaine 5% Patch 1 PATCH TOPICAL (18:42)
[2022-04-03] MEDS: HYDROcodone Bitartrate/Apap 5/325 Tablet PO (18:43)
[2022-04-03] MEDS: Ibuprofen 600 MG Tablet PO (18:43)
== END 2022-04-03 18:56 | disposition home or self-care (01) ==
LOC: ED 18:40
PROVIDERS: Emergency Provider Emergency Medicine; PCP Family Medicine; Visit Provider Emergency Medicine
DX: S39.012A Strain of muscle, fascia and tendon of lower back, initial encounter (principal); X50.1XXA Overexertion from prolonged static or awkward postures, initial encounter; Z79.52 Long term (current) use of systemic steroids
CPT/HCPCS: 99284

== ENCOUNTER 2022-11-29 12:00 | Outpatient (RCR) | payer MEDICAID, SELFPAY ==
--- NOTE | 2022-11-14 14:53 | HP.PTEVAL ---
Patient's Visit Information PATRICIO SPEAR is a 32 year old F referred to Physical Therapy by YOLANDA Kamara with a diagnosis of R ankle sprain PF. Date of Evaluation: 11/14/22 Physical Therapist: Alexis Torres, PT, SIRISHA, SCS, CSCS - Visit Plan Frequency: 2x /Week Duration: 6 Weeks Plan: Apply to insurance for treatment plan, touch base with Amara Barraza about Xray - Subjective Mrs. Spear is a pleasant 32 yo who was referred to our care by Rosa GUERRERO with a dx of right ankle pain and plantar fasciitis.. he states that she has had numerous r ankle sprains over the last several year. Last year was particularly bad. She recently rolled her ankle again 2 weeks ago. She reports pain with increased standing and walking over uneven surfaces. - Pain Right Ankle Pain Intensity (Out of 10): 4 Pain Intensity Range: 2, 9 - Objective Mildly tender over the ant complex. More tender over the retinaculum and extensor. ROM was 40 inv /20 ev2 left r 20/20. MMT was L 30 inv.36 armin R / indicting a weakness. DF was 21 l 10 R with pain. Weight bearing increases pain as she has a very flat foot. I'll talk to scott about ruling out a talar dome lesion - Balance/Special Test Scores Lower Extremity Functional Score: 10 - Goals Goal 1:: Patient will return demo HEP progra Goal Time Frame: 1 Week Goal 2:: Improve R ankle strength 10% in 4 weeks Goal Time Frame: 4-6 Weeks Goal 3:: Walk 500 feet without pain Goal Time Frame: 6-8 Weeks - Rehabilitation Potential Physical Therapy Diagnosis: R ankle sprain PF is resolving rule out a talar dome lesion Rehabilitation Potential: Good - Anticipated Interventions Patient/Client Instruction: Educate patient on: Condition, Plan of Care For the Purpose of:: To decrease pain, To increase ROM, To improve balance Therapeutic Exercise to Include: Strength training, Endurance training, Balance training, Gait and locomotor training For the Purpose of:: To decrease pain, To decrease swelling/inflammation, To improve balance Ultrasound (thermal/non thermal): Yes Thank you for the opportunity to evaluate your patient. For Medicare and Medicare HMO plans, please review the plan of care and approve it. It will need to be FAXED BACK to us at [phone] for Medicare purposes. For Medicare only, by signing this I certify the plan of care. Please let me know if there are questions or concerns regarding this plan of care. Physician Signature: Date:
--- NOTE | 2022-12-10 15:42 | HP.PTDCSUM ---
It has been my pleasure to treat PARTICIO WYMAN referred by YOLANDA Kamara, with the diagnosis of R ankle sprain PF for a total of 4 visit(s). Discharge Date: 12/10/22 Please see the following information for a summary of their discharge status. Subjective: Pt notes that her ankle felt better for a few hours after last session but got sore again after being on feet several hours. Right Ankle Pain Intensity (Out of 10): 5 Objective/Function: Several cavitation's initially with AP MWM at talocrural joint that dissipated with repeated motion. Notes improvement in anterior ankle pain level post. Resisted inversion still sensitive along peroneals at lateral ankle. Goal 1:: Patient will return demo HEP progra Goal Progress: Goal Met Goal 2:: Improve R ankle strength 10% in 4 weeks Goal 3:: Walk 500 feet without pain Plan: Apply to insurance for treatment plan, touch base with Amara Barraza about Xray Discharge Comments: Has noshow or cancelled three visits. If there are questions or concerns regarding this patient's physical therapy, please feel free to call me at [phone]. Thank you for the referral of this patient. Sincerely, Alexis Torres, PT, SIRISHA, SCS, CSCS Balance/Gait/Functional tests - Balance/Special Test Scores Lower Extremity Functional Score: 10
== END 2022-11-29 19:00 | disposition home or self-care (01) ==
LOC: PT 12:00
PROVIDERS: PCP Family Medicine
DX: M25.572 Pain in left ankle and joints of left foot (principal); M72.2 Plantar fascial fibromatosis
CPT/HCPCS: 97014; 97035; 97110; 97140; 97162; G0283

== ENCOUNTER → 2023-01-16 | Outpatient (CLI) | payer MEDICAID, SELFPAY ==
--- NOTE | 2023-01-16 09:15 | MRI_ITS ---
STUDY: MRI RIGHT ANKLE WITHOUT CONTRAST REASON FOR EXAM: Female, 32 years old. History of several twisting injuries. Ankle pain. TECHNIQUE: Standardized fat and water weighted pulse sequences were obtained in all 3 orthogonal planes. COMPARISON: X-rays of the right ankle dated November 09, 2022. FINDINGS: Circumscribed ovoid subcutaneous lipoma of the medial plantar surface measuring 3.3 cm x 1.9 cm x 1.6 cm and located just below and medial to the plantar fascia (axial series 3 images 4-9, sagittal series 5 images 9-14). Superficial subcutaneous soft tissue edema dorsally and laterally (coronal series 7 images 1-11). Normal posterior tibialis tendon. Normal flexor digitorum longus tendon. Normal flexor hallucis longus tendon. Normal peroneus longus and brevis tendons. Normal tibialis anterior tendon. Normal extensor hallucis longus tendon. Normal extensor digitorum longus tendons. Normal Achilles tendon and teno-osseous insertion. Pre-Achilles bursitis (sagittal series 6 images 10-14). Normal plantar fascia. Normal plantar calcaneal tubercles. Normal intrinsic muscles of the rearfoot. Normal distal tibiofibular syndesmotic ligamentous complex. Normal lateral ligamentous complex. Normal subtalar ligaments and sinus tarsi. Normal deltoid ligamentous complexes. Normal plantar calcaneonavicular (spring) ligament. Normal tibiotalar articulation. Normal talar dome. Normal subtalar articulations. Normal talonavicular articulation. Septated lateral ganglion cyst of the calcaneonavicular articulation (sagittal series 6 images 4-C7, coronal series 7 images 8-12). Normal navicular-cuneiform articulations. MRI/Lower Ext Joint Only (Routine) IMPRESSION: Pre-Achilles bursitis. Lateral ganglion cyst of calcaneonavicular joint. Superficial subcutaneous lipoma of the medial plantar surface of the foot adjacent to the plantar fascia. No aggressive features. Dorsal and lateral superficial subcutaneous soft tissue edema. No other abnormality. Electronically Signed: Joe Quevedo MD at 10:13 EDT ,
== END | disposition home or self-care (01) ==
LOC: MRI 08:16
PROVIDERS: PCP Family Medicine
DX: M25.571 Pain in right ankle and joints of right foot (principal)
CPT/HCPCS: 73721

== ENCOUNTER 2023-04-29 11:54 | Day surgery (SDC) | payer MEDICAID, SELFPAY ==
[2023-04-29] VITALS (8 sets, daily range): BP systolic 90–124; BP diastolic 54–83; PULSE 76–89; RESP 14–16; TEMP 36.1–36.4; O2SAT 95–100; BMI 44.5
[2023-04-29 12:24] LABS: Internal QC Validated? YES +Cl - CLEAR BKGD; Pregnancy, Urine Negative Negative; Record Kit Lot#,Urine Preg HCG0000667200
[2023-04-29] MEDS: Lactated Ringers 1,000 ML 15 ML IV (12:27)
--- NOTE | 2023-04-29 13:30 | LIP_PTH ---
PATIENT: PATRICIO WYMAN LOC: [facility] [place] U#:[id number] AGE/SX: 33/F ROOM: RE04/29/[address]: Dr. Devin Vasquez DPM : 1990 BED: DIS: 04/29/2023 SPEC #: [id number] RECD: 04/29/23 18:21 STATUS: GRAZYNA REVivienne #: [id number] SAMEER: 04/29/23 13:[address]: Devin Vasquez DEPT: SURGICAL PATHOLOGY RECD BY: Eugenie Patton ENTERED: 04/30/23 08:50 SP TYPE: LIPOMA OTHR DR: Dr. Valerio Maynard MD Tissues: A - Soft tissues, NOS B - GANGLION CYST Procedures: Surgery Specimen Level III HEADER OPERATION: Excision of right foot calcaneocuboid joint ganglionic cyst PRE-OP DIAGNOSIS: Plantar fasciitis, calcaneocuboid ganglionic cyst, plantar medial lipoma right foot TISSUE SUBMITTED: A - Lipoma of right foot, B - Ganglion cyst right foot MICROSCOPIC DIAGNOSIS A. Lipoma of right foot, excision: Mature adipose tissue, favor lipoma. B. Ganglion cyst right foot: Favor ganglion cyst. STEFF:willy 05/01/2023 MICROSCOPIC DESCRIPTION Slides are reviewed. GROSS DESCRIPTION A - Received in fixative is one container labeled with the patient's name and designated lipoma right foot. The specimen consists of three variable sized pieces of yellow adipose tissue that in aggregate measure 3.5 x 3.0 x 1.5 cm. Sections reveal yellow adipose cut surfaces without area of hemorrhage, necrosis or cystic degeneration. Rn Social Work sections are submitted in one cassette. B - Received in fixative is one container labeled with the patient's name and designated ganglion cyst right foot. The specimen consists of an irregular piece of [place] soft tissue measuring in aggregate 2.5 x 1.0 x 1.0 cm. The specimen is bisected and reveals a cyst filled with mucoid fluid. The entire specimen is submitted in one cassette. / STEFF:willy 04/30/2023 TC:5 CPT: 42283 x2
[2023-04-29] MEDS: Cefazolin 2 GM in 0.9% Normal Saline (100mL Bag) 100 ML IV (13:59)
[2023-04-29] MEDS: Bacitracin 500 UNITS/GM PACKET (15:03)
[2023-04-29] MEDS: Bupivacaine Mpf 0.5% 30 ML VIAL (15:04)
--- NOTE | 2023-04-29 15:17 | OP.PCM_ITS ---
Problems Associated Problem List Diagnoses (1) Plantar fascial fibromatosis: (2) Lipoma of foot: (3) Benign neoplasm of soft tissue of foot: (4) Benign neoplasm of connective and other soft tissue of right lower limb, including hip: Report of Operation Date of Procedure: 04/29/23 Pre-Operative Diagnosis: 1) Right Foot Plantar Fasciitis 2) Right Foot Ganglionic Cyst 3) Right foot Lipoma Post-Operative Diagnosis: same Surgery/Procedure Performed:: 1) endoscopic plantar fasciotomy, right foot 2) excision of lipoma right foot 3) excision of ganglionic cyst right foot Description of Surgical Findings:: Large 1 x 3 cm again lipoma removed from right foot plantar medial superficial area sent for pathology Adequate release of the plantar fascia MRI demonstrated some mild thickening of the plantar fascia with intra substance signal suggestive of this tearing and irritation. Small 0.5 x 0.5 cm meter ganglionic cyst removed from the calcaneal navicular region of the foot. Surgeon: Devin Vasquez surveillance systems engineer: None Type of Anesthesia: General Special Medications: Patient received popliteal block in PACU, and procedure 10 cc half percent Marcaine plain in a ring block technique Specimen's removed: Right foot lipoma Right foot ganglionic cyst Drains: None Estimated Blood Loss (mL): Minimum Description of Procedure: Patient brought back the operating placed comfortably in supine position on operating room table. All osseous prominences offloaded to prevent any compression neuropraxia. Patient induced under general anesthesia. Well-padded right thigh tourniquet applied. Right lower extremity positioned and not any hip external hip rotation was knocked out using hip bump. Right lower extremity scrubbed prepped and draped using typical aseptic fashion. We will right lower extremity was elevated exsanguinated tourniquet was inflated to 300 mmHg. Once cleared by anesthesia the surgery had started. Procedure 1 endoscopic plantar fasciotomy: 1 cm distal to the medial calcaneal tubercle a stab incision was made along the medial aspect of the skin using a #11 blade using a trocar the plantar fascial band was scrubbed and identified in the the trocar was then passed from medial to lateral along the plantar surface of the plantar fascia and exited through the lateral skin through a stab incision again made with an 11 blade. The cannula was then inserted along with a 4 oh scope. Plantar fascia was then identified and then released the central central and medial bands approximately two thirds of the central band was released from lateral to medial using a hook blade. It was confirmed that adequate release was performed once the underlying musculature could be identified. Site was flushed with copious amounts of normal sterile saline and dressed and closed with horizontal mattress 3-0 nylon. Procedure 2 lipoma excision right foot: A longitudinal linear incision was was drawn over the medial aspect of the foot at the site of the palpable subcutaneous mass incision was made along this direction just distal to endoscopic plantar fasciotomy site through epidermis dermis into subcutaneous tissue blunt dissection was taken down to level deep fascia at this time a superficial lipomatous mass was identified and removed using atraumatic technique with blunt dissection any bleeders identified and cauterized neurovascular structures were identified and protected with blunt retraction. A 1 x 3 cm lipoma was excised in totality and passed the back table and sent for pathology site was flushed with copious amounts of normal sterile saline. Incisional site was then closed using subcutaneous buried interrupted 3-0 Vicryl. A bio Conklin graft was packed into the plantar medial wound site. Incisional closure performed with horizontal mattress 3-0 nylon. Procedure #3 ganglionic cyst removal right foot: A 3 cm incision was drawn along the course of the sinus tarsi to the anterior lateral ankle/foot this was made longitudinally with a 15 blade through epidermis dermis into subcutaneous tissue. Any bleeders identified cauterized neurovascular structures including the intermediate dorsal cutaneous nerve was identified along the superior aspect of the incision and protracted with gentle blunt retraction. Deep dissection was then taken with pickups and hemostats until a ganglionic cyst was noted to be communicating with calcaneal Sina navicular joint just along the distal aspect of the sinus tarsi. This measured to be 0.5 x 0.5 cm was excised using electrocautery with electrocauterization being performed to the root to prevent recurrence. This was passed the back table and sent to pathology for further examination incision was then flushed with copious amounts of normal sterile saline. 3-0 Vicryl was then used to perform closure using subcutaneous closure with interrupted buried technique. Bio Conklin graft was applied to the wound site. Skin closure was performed with horizontal mattress 3-0 nylon. All tourniquet was let down. Total tourniquet time noted to be 42 minutes All sites were dressed with bacitracin Adaptic 4 x 4's Kerlix with 2 layers of cast padding, two 4 inch Po, 2 layers of cast padding, a AO splint with a double 6 inch Po. Patient was transferred to PACU vital signs stable and vascular status intact all digits for further monitoring prior to discharge. Patient tolerated pro cedure and anesthesia well in apparent satisfactory condition. No complications. Ankle range of motion was tested with knee flexed and extended and noted to be greater than 10 degrees of dorsiflexion. Endoscopic gastrocnemius recession was not performed due to this.
[2023-04-29] MEDS: oxyCODONE 5 MG Tablet PO (16:52)
== END 2023-04-29 17:36 | disposition home or self-care (01) ==
LOC: SDC 11:55 → AC 11:56
PROVIDERS: Anesthesiology; PCP Family Medicine; Referring Provider Podiatrist; Visit Provider Podiatrist
PROC: (CPT 29893; principal; 2023-04-29 13:15)
DX: M72.2 Plantar fascial fibromatosis (principal); D17.23 Benign lipomatous neoplasm of skin and subcutaneous tissue of right leg; M67.471 Ganglion, right ankle and foot; F17.290 Nicotine dependence, other tobacco product, uncomplicated
CPT/HCPCS: 29893; 28090; 28041; 64445; 01464; 81025; 88304; J7120; J2405

== ENCOUNTER 2023-05-24 19:46 | Emergency (ER) | payer MEDICAID, SELFPAY ==
[2023-05-24 19:47] VITALS: BP 144/92; PULSE 102; RESP 18; TEMP 36.6; O2SAT 97
--- NOTE | 2023-05-24 20:10 | EX.ED.DYSGE1 ---
HPI History of Present Illness Chief Complaint: Shortness of Breath Detail of Chief Complaint: Patient has more than 1 chief complaint. Please see HPI narrative Informant: patient Onset/Context/Timing Onset: Today (Not getting enough air) and Yesterday (Being pain right calf initially intermittent now continuous, see HPI for further detail) Context: Sudden Onset Timing: Continuous Quality: Tightness in chest and unable to get a complete breath and cramping right c Location: Chest and right calf Current Severity: Mild Maximum Severity: Moderate Worsened by: Palpation of calf and movement for calf pain and tightness in chest/unable Relieved by: Nothing Associated Symptoms Associated Symptoms: No other symptoms Narrative Narrative: Patient is a 33-year-old woman who had surgery for plantar fascial fibromatosis, lipoma of the foot operative date was April 29. Patient had follow-up on the . Patient had a fall and was seen by her hoop maker machine after the fall and placed in a padded dressing. She contacted podiatry and informed the person video production coordinator that she had initially intermittent cramping of the right calf and now the cramping is continuous. She also reports difficulty taking a complete breath. She denies pleuritic pain. She denies hemoptysis. She is a smoker. She does have a cough. The cough is no worse than normal. Patient denies fever, chills night sweats. Patient denies rhinorrhea, congestion, postnasal drainage or sore throat. Patient denies tightness heaviness in her chest. She feels she is not able to get a complete breath because her breathing feels tight. She denies epigastric pain. She denies pain in her shoulders, extremities neck or back. She denies swelling of the right lower extremity or discoloration of the right lower extremity. Of note she is on Lovenox. She is also on a PPI. The calf pain that started after a fall. She states she slipped off her scooter and she went to prevent hitting the ground by extending her foot. She did follow-up with podiatry after that. They felt there was no significant issues. Prior similar symptoms: No Recent Illness/Hospitalization: No [facility] Medical History Alcohol use Anemia Anxiety Back pain Gastric reflux History of drug use History of edema History of pain when walking Narcolepsy Restless legs Shortness of breath on exertion Smoker unusual tiredness Wears dentures Home Medications etonogestrel 68 mg subdermal implant (Nexplanon) 1 implant subdermal ONCE 02/05/20 [History Last Taken Unknown] pantoprazole 20 mg tablet,delayed release 20 mg PO DAILY 11/09/22 [History Last Taken Unknown] enoxaparin 40 mg/0.4 mL subcutaneous syringe (Lovenox) 40 mg (0.4 mL) subcut DAILY #8 mL 04/29/23 [Rx Last Taken Unknown] oxycodone 5 mg capsule 5 mg PO Q4H PRN pain 7 days #42 caps 04/29/23 [Rx Last Taken Unknown] Allergy/AdvReac Type Severity Reaction Status Date / Time egg Allergy Mild Other Verified 05/24/23 19:47 adhesive tape Allergy Unknown Verified 05/24/23 19:47 Latex, Natural Rubber Allergy Hives Verified 05/24/23 19:47 aspirin AdvReac Abd Verified 05/24/23 19:47 cramps/diarrhea dicyclomine HCl [From Bentyl] AdvReac Abd Verified 05/24/23 19:47 cramps/diarrhea erythromycin base AdvReac Abd Verified 05/24/23 19:47 [Erythromycin Base] cramps/diarrhea naproxen AdvReac Abd Verified 05/24/23 19:47 cramps/diarrhea sulfamethoxazole AdvReac Abd Verified 05/24/23 19:47 [From Bactrim] cramps/diarrhea trimethoprim [From Bactrim] AdvReac Abd Verified 05/24/23 19:47 cramps/diarrhea Surgical History History of Hx laparoscopic cholecystectomy Social History Smoking Status: Current every day smoker tobacco type: cigarettes alcohol intake: never substance use type: does not use and former substance user caffeine: Yes what type of physical activity do you participate in: none seatbelt use: always do you feel safe at home: Yes additional social history: Nicolasa- works at [employer] 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 ROS ROS ED Constitutional Constitutional ED: Denies chills, fever(s), subjective, sweats or weight loss Eyes Eyes: Denies blurry vision, change in vision or diplopia ENT ENT ED: Denies ear pain, rhinorrhea or sore throat Cardiovascular Cardiovascular: Denies chest pain, orthopnea, palpitations, paroxysmal nocturnal dyspnea or racing heartbeat Respiratory/Chest Respiratory/Chest: Reports cough; Denies dyspnea, dyspnea on exertion, orthopnea or paroxysmal nocturnal dyspnea Gastrointestinal Gastrointestinal: Denies abdominal pain, constipation, diarrhea, melena, nausea or vomiting Genitourinary Genitourinary ED: Denies dysuria, hematuria or urinary frequency Musculoskeletal Musculoskeletal: Denies arthralgias, back pain, myalgias or neck pain Integumentary Denies abscess, Abrasions or rash Neurologic Neurologic: Denies paresthesias or weakness Psychiatric Psychiatric: Denies anxiety or depression Hematologic/Lymphatic Hematologic/Lymphatic: Reports systems reviewed and no addt'l complaints, except as documented EXAM Physical Exam Const Vital Signs: 05/24/23 19:47 05/24/23 20:52 Temperature 98 F Temperature Source Temporal Pulse Rate 102 H Respiratory Rate 18 Respiratory Effort Short of Breath Respiratory Depth Normal Respiratory Pattern Normal Blood Pressure 144/92 H Blood Pressure Mean 109 Pulse Ox 97 Oxygen Delivery Method Room Air Room Air Oxygen Flow Rate (L/min) 95 Positive well nourished, well developed and obese General Appearance ED: well developed and NAD; Negative for cyanotic, diaphoretic or pallor Nutritional Appearance: obese HEENT Reports moist mucous membranes HEENT Narrative: Head is atraumatic and normocephalic. Ears are normal. Nares are patent. Posterior pharynx is normal. Eyes PERRL and EOMs intact bilaterally General Eye ED: Negative for pale conjunctiva or scleral icterus Neck no lymphadenopathy, supple and no JVD Chest Wall inspection of chest normal and palpation of chest normal Resp normal respiratory effort and clear to auscultation bilaterally Cardio regular rate, regular rhythm, S1 normal heart sound, S2 normal heart sound and no murmurs GI normal to inspection, nondistended, normoactive bowel sounds, non-tender, non-distended and no masses; Negative for hepatosplenomegaly Palpation: soft Back/Spine no CVA tenderness Extremity normal to inspection Extremity Narrative: There is tenderness of the right calf. There is no leg vein distention, palpable cords, tenderness along the distribution of the deep venous system, swelling, asymmetry or discoloration. [id number] the right calf is smaller in size in the left calf. General Extremety ED: Yes tenderness and other findings; Negative for edema General Extremity: other findings; Negative for edema Neuro oriented x3, CN's II-XII intact bilaterally and no sensory deficits noted Sensorium / Orientation: alert Psych mental status grossly normal Skin no rashes or lesions noted, no wounds and skin turgor normal Skin Narrative: Vision site is healing without evidence infection. General Skin Exam: elasticity normal; Negative for jaundice or pallor MDM MDM MDM Narrative Medical decision making narrative: Patient is low risk for DVT per Wells criteria. Patient has a -1. D-dimer was obtained. Lab Data Attestation: I reviewed the patient's lab results. Lab results narrative: Count is slightly elevated 11.4 thousand with no shift. H&H is slightly elevated 15.1 and 45. Basic metabolic panel is normal. Dimer is less than 0.27. This rules out VTE. Labs: Laboratory Results - last 24 hr 05/24/23 21:03 WBC 11.4 H RBC 5.70 H Hgb 15.1 H Hct 47.5 H MCV 83.3 MCH 26.5 L MCHC 31.8 L RDW Std Deviation 42.8 RDW Coeff of [place] 14.2 Plt Count 332 MPV 10.3 Immature Gran % (Auto) 0.400 Neut % (Auto) 58.8 Lymph % (Auto) 34.4 [place] % (Auto) 4.7 Eos % (Auto) 1.1 Baso % (Auto) 0.6 Absolute Neuts (auto) 6.7 Absolute Lymphs (auto) 3.93 Nucleated RBC % 0 D-Dimer Quant (PE/DVT) < 0.27 L Sodium 141 Potassium 3.5 Chloride 108 H Carbon Dioxide 27.0 Anion Gap 6 BUN 9 Creatinine 1.02 Est GFR (MDRD) Af Amer 79 Est GFR (MDRD) Non-Af 66 BUN/Creatinine Ratio 8.8 L Glucose 92 Calcium 8.9 Radiography Chest X-Ray - ED: 2 View and Read by ED Physician (Pendantly reviewed interpreted by me at 2136 as negative. Cardiac silhouette and size unremarkable. Lung parenchyma is unremarkable. The perihilar regions normal. The osseous structures are unremarkable. The film is slightly underpenetrated.) EKG Initial EKG: Attestation: I personally reviewed and interpreted this EKG as follows: Interpretation: Sinus Rhythm (Rate is 75. The EKG is normal. WI interval is 140 ms. QT duration 82 ms. QT duration 364 ms. [place] is normal.) Treatment and Re-Evaluation :: Delay in entering orders since initial orders were placed on the wrong patient. Discharge Plan Triage Chief Complaint: Shortness of Breath ED Provider: Emmanuel Mckeon Dx/Rx/DC Orders Clinical Impression: Breathing difficult, Pain of right calf, Elevated blood-pressure reading, without diagnosis of hypertension Instructions: ED Hypertension, To Be Confirmed, ED Pain, Acute, Uncertain Cause Prescriptions: No Action Nexplanon 68 mg implant 1 implant subdermal ONCE Rx Instructions: as a single dose pantoprazole 20 mg tablet,delayed release (DR/EC) 20 mg PO DAILY enoxaparin [Lovenox] 40 mg/0.4 mL syringe 40 mg subcut DAILY Qty: 8 0RF oxycodone 5 mg capsule 5 mg PO Q4H PRN (Reason: pain) 7 Days Qty: 42 0RF Primary Care Provider: Valerio Maynard Referrals: Valerio Maynard MD [Primary Care Provider] - 1-2 Weeks Activity Restrictions/Additional Instructions: 1. Apply ice to your right calf 6-10 times a day for the next 3 to 5 days. 2. Take Tylenol for your pain 3. Your blood pressure has been elevated during your ER stay. Recommend follow-up with your doctor for blood pressure recheck. Disposition Disposition: Home, Self Care
--- NOTE | 2023-05-24 20:52 | EKG12_ITS ---
Test Reason : SOB Blood Pressure : / mmHG Vent. Rate : 075 BPM Atrial Rate : 075 BPM P-R Int : 140 ms QRS Dur : 082 ms QT Int : 364 ms P-R-T Axes : 047 018 031 degrees QTc Int : 406 ms Normal sinus rhythm Normal ECG Confirmed by ARACELY JUÁREZ, JOSEY ([id number]), editor continuity and script BONNY SAWYER ([id number]) on 05/29/2023 12:26:39 PM Referred By: Confirmed By:JOSEY JESSICA MD
--- NOTE | 2023-05-24 21:15 | RAD_ITS ---
STUDY: X-RAY CHEST REASON FOR EXAM: Female, 33 years old. Cough and shortness of breath TECHNIQUE: Frontal and lateral views of the chest. COMPARISON: January 28, 2018. FINDINGS: The lungs are clear and expanded. There is no demonstrated pleural abnormality. Normal size heart. Normal mediastinum and win. Normal visualized pulmonary arteries. Normal visualized aortic arch and descending thoracic aorta. Normal visualized thoracic spine. Normal visualized ribs, clavicles, and shoulders. There is no demonstrated abnormality of the visualized soft tissue structures of the upper abdomen. RAD/Chest PA and Lateral IMPRESSION: Normal x-ray examination of the chest. Electronically Signed: Hamilton Hernandez MD at 22:00 EST ,
[2023-05-24 21:16] LABS: Absolute Lymphocyte Count 3.93 X10^3/uL (0.83-4.51); Absolute Neutrophil Count 6.7 X10^3/uL (2.0-7.7); Basophil# 0.07 X10^3/uL; Basophil% 0.6 % (0-1); Eosinophil# 0.12 X10^3/uL; Eosinophils% 1.1 % (0-5); Hematocrit 47.5 % (37-47); Hemoglobin 15.1 g/dL (12.0-15.0); Lymphocyte # 3.93 X10^3/ul (0.83-4.51); Lymphocyte % 34.4 % (19-41); Mean Corp Hgb Conc 31.8 g/dL (32-36); Mean Corpuscular Hgb 26.5 pg (27.0-32.0); Mean Corpuscular Volume 83.3 fL (81-99); Mean Platelet Vol. 10.3 fl (6.2-12.0); Monocyte# 0.54 X10^3/uL; Monocyte% 4.7 % (0-10); NRBC Flagged by Analyzer 0 % (0-5); Neutrophil # 6.71 X10^3/uL (2.7-7.7); Neutrophil % 58.8 % (47-70); Platelet Count 332 K/mm3 (150-450); RBC Distribution Width CV 14.2 % (11.6-14.6); RBC Distribution Width SD 42.8 fl (35.1-43.9); White Blood Count 11.4 K/mm3 (4.4-11.0)
[2023-05-24 21:21] LABS: Anion Gap 6 (5-15); BUN 9 mg/dL (7-18); BUN/Creat Ratio 8.8 RATIO (10-20); Calcium,Total 8.9 mg/dL (8.5-10.1); Chloride 108 mmol/L (98-107); Creatinine, Serum 1.02 mg/dL (0.55-1.02); EST Glomerular Filtration Rate 66 mL/min (>60); Est Glom Filt Rate - Afr Amer 79 mL/min (>60); Glucose 92 mg/dL (74-106); Potassium 3.5 mmol/L (3.5-5.1); Sodium Level 141 mmol/L (136-145)
[2023-05-24 21:41] LABS: D-Dimer Quantitative (DVT/PE) < 0.27 FEU/ug/m (0.27-0.49)
[2023-05-24 22:04] VITALS: BP 108/70; PULSE 80; RESP 18; O2SAT 97
[2023-05-24 22:05] VITALS: BP 108/70; PULSE 80; RESP 15; O2SAT 97
== END 2023-05-24 22:18 | disposition home or self-care (01) ==
PROVIDERS: Emergency Provider Emergency Medicine; PCP Family Medicine; Visit Provider Emergency Medicine
DX: R06.89 Other abnormalities of breathing (principal); R06.02 Shortness of breath; M79.661 Pain in right lower leg; R03.0 Elevated blood-pressure reading, without diagnosis of hypertension; Z87.898 Personal history of other specified conditions; F17.210 Nicotine dependence, cigarettes, uncomplicated
CPT/HCPCS: 71046; 80048; 85025; 85379; 93005; 99285; A4216

== ENCOUNTER 2023-09-05 10:00 | Outpatient (RCR) | payer MEDICAID, SELFPAY ==
--- NOTE | 2023-06-10 14:27 | HP.PTEVAL_ITS ---
Patient's Visit Information Visit Information Visit Information: PATRICIO WYMAN is a 33 year old F referred to Physical Therapy by Dr. Devin Vasquez DPM with a diagnosis of PLANTA FASCIAL FIBROMATOSIS ,PAIN IN RIGHT FOOT ,TIGHT ACHILLES TENDON. Date of Evaluation: 06/10/23 Physical Therapist: Bubba Mc, PT, Cert MDT, OCS Visit Plan Frequency: 3x /Week Duration: 8-12WEEKS Plan: PATIENT IS WBAT MAXIMILIANO WITH CAM BOOT AND USES CRUTCES NO WB RESTRICTIONS ,PROGRESS WITH D/C CAM BOOT AND CRUTCHES PT INTERVTIONS MANULA THERAPY STM/STICK CALF AND PLANTAR FACSIA ,STRETCHING CALF AND PLANTAR FASCIA ,STRENGTHENING ANKLE ,PROPRIOCEPTION ,PROGRESSING WB , AND GAIT TRAINING Subjective Subjective: This 33 y/o female presents to plantar fascia and foot pain for ~ 1 years. Patient underwent s/p endoscopic fasciotomy right ,excision lipoma and ganglionic cyst on 04/29/[address] [facility] . Patient d/c with NWB right with scooter and CAM boot place on 05/06/23 and removed cast with cont NWB . Patient progressed with WB until 2 weeks with goal no walk no crutches but CAM boot. But had a fell on scooter without CAM boot 05/[address] and instruction with NWB with CAM boot. Most recently seen DR and wean CAM boot and crutches with FWB. Patient has tried PT in past ,cortisone injection and orthotics. Patient has pain in calcaneus with walking. Patient denies paresthesia/tingling. Patient sleeping okay at night. Home story home with 5 steps and rail. Patient has 20 steps 2nd floor. Patient is I with ADLS. Patient pain affects QOL and fu nction housework tasks. Patient condition affects QOL. Patient had x-rays - after fall. Okay WBAT wean boot and crutches no restriction except pain SOCIAL: Pain Right Foot: Pain Intensity (Out of 10): 8 Pain Intensity Range: 10 Comment: heel Objective Objective: POSTURE: pes planus ICISION: dry crusty medial/lateral no drainage EDEMA: ( tri malleolar)67.8 cm PALPATION: tender plantar fascia and calf tender GAIT: ambulates with crutches with WBAT and AND BOOT AROM: dorsiflexion -5 degrees ,plantar flexion 45 degrees ,inversion 5 degrees ,inversion 5 degrees MMT: peak force anterior tibialis 5 # ,peroneus 0 # ,posterior tibialis 3# , G- S 5 # STAIRS: one steps time with crutches CALF TIGHTNESS: MOD tight Balance/Special Test Scores Lower Extremity Functional Score: 9 Goals Goal 1:: I with HEP ankle Goal Time Frame: 8-12 Weeks Goal 2:: Patient to ambulate with normal winter 80% of the time Goal Time Frame: 8-12 Weeks Goal 3:: Patient to increase AROM ankle all planes by 5-10 degrees to improve gait Goal Time Frame: 8-12 Weeks Goal 4:: Patient to improve peak force of ankle by 10 # strength to improve gait Goal Time Frame: 8-12 Weeks Goal 5:: Patient to demonstrate 60% improvement with increase function and less pain Goal Time Frame: 8-12 Weeks Goal 6:: Patient to improve LFES score by 5 -10 points or > to improve QOL Goal Time Frame: 8-12 Weeks Rehabilitation Potential Physical Therapy Diagnosis: Patient underwent s/p endoscopic fasciotomy right ,excision lipoma and ganglionic cyst on 04/29/[address] [facility] . Patient is walking with CAM boot and crutches with WBAT with pain ,decrease ankle ROM ,weakness ,decrease gait impairs function with walking and standing thus benefit from skilled PT Rehabilitation Potential: Good Anticipated Interventions Patient/Client Instruction: Educate patient on: Condition and Plan of Care For the Purpose of:: To decrease pain, To decrease swelling/inflammation, To increase ROM, To improve muscle performance and motor function, To improve ability to perform ADL's, To increase tolerance to activity/condition/position, To improve ability of physical actions for home/community/work/leisure, To improve gait and locomotor functions, To improve health of tissue, To decrease soft tissue restriction, To increase flexibility/ROM, To improve endurance, To improve balance and To improve tolerance to ADL's Therapeutic Exercise to Include: Strength training, Balance training, Flexibilty training, Gait and locomotor training and Active ROM Comment: STRENGTHNEING ANKLE ,PROPRIOCEPTION For the Purpose of:: To decrease pain, To increase ROM, To improve nutrient delivery to tissue, To increase oxygenation perfusion, To improve muscle performance and motor function, To increase tolerance to activity/condition/position, To improve ability of physical actions for home/community/work/leisure, To improve gait and locomotor functions, To improve health of tissue, To decrease soft tissue restriction, To increase flexibility/ROM and To improve balance Manual Therapy Techniques to Include: Mobilization, Passive ROM and Soft tissue mobilization Comment: CALF/PF HAWK /STICK For the Purpose of:: To decrease pain, To increase ROM, To improve nutrient delivery to tissue, To increase oxygenation perfusion, To improve health of tissue, To decrease soft tissue restriction and To increase flexibility/ROM Text: Thank you for the opportunity to evaluate your patient. For Medicare and Medicare HMO plans, please review the plan of care and approve it. It will need to be FAXED BACK to us at [phone] for Medicare purposes. For Medicare only, by signing this I certify the plan of care. Please let me know if there are questions or concerns regarding this plan of care. Physician Signature: Date:
--- NOTE | 2023-08-01 12:35 | HP.PTREVAL_ITS ---
Re-Evaluation Intro: Dr. Devin Vasquez, DPM, It has been my pleasure to treat PATRICIO WYMAN over the last 12 visits for PLANTA FASCIAL FIBROMATOSIS ,PAIN IN RIGHT FOOT ,TIGHT ACHILLES TENDON. Please see the progress note below for an update on the physical therapy plan of care! Subjective Subjective: Doing better , overall less pain . Progressed to shoe 4 hrs Patient incision sensitive and dorsal foot Objective Objective/Function: Patient has made great progress with ROM and strength and progressing to shoe but conts to benefit from skilled PT POSTURE: pes planus ICISION: dry crusty EDEMA: ( tri malleolar)64.2 cm PALPATION: tender plantar fascia and calf tender SLS: BUE support GAIT: ambulates with shoe with antalgic with decrease stance right leg AROM: dorsiflexion 0 degrees ,plantar flexion 45 degrees ,inversion 10 degrees ,inversion 5 degrees MMT: peak force anterior tibialis 30.8 # ,peroneus 18.7 # ,posterior tibialis 16.8# , G-S 35.1 # STAIRS: one steps time CALF TIGHTNESS: min tight Plan Plan Plan: NO WB RESTRICTIONS ,PROGRESS WITH D/C CAM BOOT MAXIMILIANO UP TO 4 HRS DAY PT INTERVTIONS MANUAL THERAPY STM/STICK CALF AND PLANTAR FACSIA ,STRETCHING CALF AND PLANTAR FASCIA ,STRENGTHENING ANKLE PROPRIOCEPTION ,PROGRESSING WB, AND GAIT TRAINING Balance/Gait/Functional tests Balance/Special Test Scores Lower Extremity Functional Score: 40 Goals Goals Goal 1:: I with HEP ankle Goal Time Frame: 8-12 Weeks Goal 2:: Patient to ambulate with normal winter 80% of the time Goal Time Frame: 8-12 Weeks Goal Progress: Progressing Goal 3:: Patient to increase AROM ankle all planes by 5-10 degrees to improve gait Goal Time Frame: 8-12 Weeks Goal Progress: Progressing Goal 4:: Patient to improve peak force of ankle by 10 # strength to improve gait( NEW GOALS) Goal Time Frame: 8-12 Weeks Goal 5:: Patient to demonstrate 60% improvement with increase function and less pain( NEW GOAL) Goal Time Frame: 8-12 Weeks Goal 6:: Patient to improve LFES score by 5 -10 points or > to improve QOL (NEW GOAL) Goal Time Frame: 8-12 Weeks Anticipated Interventions Anticipated Interventions Patient/Client Instruction: Educate patient on: Condition and Plan of Care For the Purpose of:: To decrease pain, To decrease swelling/inflammation, To increase ROM, To improve muscle performance and motor function, To improve ability to perform ADL's, To increase tolerance to activity/condition/position, To improve ability of physical actions for home/community/work/leisure, To improve gait and locomotor functions, To improve health of tissue, To decrease soft tissue restriction, To increase flexibility/ROM, To improve endurance, To improve balance and To improve tolerance to ADL's Therapeutic Exercise to Include: Strength training, Balance training, Flexibilty training, Gait and locomotor training and Active ROM Comment: STRENGTHNEING ANKLE ,PROPRIOCEPTION For the Purpose of:: To decrease pain, To increase ROM, To improve nutrient delivery to tissue, To increase oxygenation perfusion, To improve muscle performance and motor function, To increase tolerance to activity/condi tion/position, To improve ability of physical actions for home/community/work/leisure, To improve gait and locomotor functions, To improve health of tissue, To decrease soft tissue restriction, To increase flexibility/ROM and To improve balance Manual Therapy Techniques to Include: Mobilization, Passive ROM and Soft tissue mobilization Comment: CALF/PF HAWK /STICK For the Purpose of:: To decrease pain, To increase ROM, To improve nutrient delivery to tissue, To increase oxygenation perfusion, To improve health of tissue, To decrease soft tissue restriction and To increase flexibility/ROM Re-Evaluation Ending Re-evaluation ending: Please do not hesitate to contact me at [phone] by phone or if you have questions or concerns regarding this new plan of care! Sincerely, Bubba Mc, PT, Cert MDT, OCS
--- NOTE | 2023-09-05 10:23 | HP.PTDCSUM ---
Discharge Summary D/C summary: It has been my pleasure to treat PATRICIO WYMAN referred by Dr. Devin Vasquez DPSandra, with the diagnosis of PLANTA FASCIAL FIBROMATOSIS ,PAIN IN RIGHT FOOT ,TIGHT ACHILLES TENDON for a total of 17 visit(s). Discharge Date: 09/05/23 Please see the following information for a summary of their discharge status. Subjective Subjective: Doing good Pain Right Foot: Pain Intensity (Out of 10): 2 Overall Improvement % Improvement: 90 Objective Objective/Function: POSTURE: pes planus ICISION: WELL APPROXIMATE AROM: dorsiflexion 4degrees ,plantar flexion 45 degrees ,inversion 10 degrees ,inversion 5 degrees MMT: peak force anterior tibialis 35.8 # ,peroneus 28.7 # ,posterior tibialis 25.8# , G-S 35.1 # STAIRS: alternating CALF TIGHTNESS: min tight Goals Goal 1:: I with HEP ankle Goal Progress: Goal Met Goal 2:: Patient to ambulate with normal winter 80% of the time Goal Progress: Goal Met Goal 3:: Patient to increase AROM ankle all planes by 5-10 degrees to improve gait Goal Progress: Goal Met Goal 4:: Patient to improve peak force of ankle by 10 # strength to improve gait( NEW GOALS) Goal Progress: Goal Met Goal 5:: Patient to demonstrate 60% improvement with increase function and less pain( NEW GOAL) Goal Progress: Goal Met Goal 6:: Patient to improve LFES score by 5 -10 points or > to improve QOL (NEW GOAL) Goal Progress: Goal Met Plan Plan: D/C D/C Information Discharge Comments: hep d/c sentence: If there are questions or concerns regarding this patient's physical therapy, please feel free to call me at [phone]. Thank you for the referral of this patient. Sincerely, Bubba Mc, PT, Cert MDT, OCS Balance/Gait/Functional tests Balance/Special Test Scores Lower Extremity Functional Score: 54 Improvement % Improvement: 90
== END 2023-09-05 19:00 | disposition home or self-care (01) ==
LOC: PT 10:00
PROVIDERS: PCP Family Medicine; Referring Provider Podiatrist; Visit Provider Podiatrist
DX: M72.2 Plantar fascial fibromatosis (principal)
CPT/HCPCS: 97110; 97140; 97162; 97530

== ENCOUNTER → 2023-11-11 | Outpatient (CLI) | payer MEDICAID, SELFPAY ==
--- NOTE | 2023-11-11 16:07 | US_ITS ---
STUDY: ULTRASOUND OF THE FEMALE PELVIS - COMPLETE REASON FOR EXAM: Female, 33 years old. Abnormal uterine bleeding LMP: Unknown. TECHNIQUE: Transabdominal and Transvaginal TECHNICAL QUALITY: Adequate. COMPARISON: None. FINDINGS: The uterus is anteverted and is in a midline position. The uterus measures 6.1 cm x 3.8 cm x 2.6 cm. Normal uterine cervix. The endometrium measures 1.9 mm in thickness, and is heterogeneous (striated). There is no demonstrated endometrial mass. There is no demonstrated myometrial mass. I.U.D. - The patient does not have an I.U.D. The right ovary is visualized. The right ovary measures 3.4 cm x 2.8 cm x 2.2 cm. There is no right ovarian cyst or ovarian mass. There is no visualized right adnexal mass or complex lesion. There is normal arterial and normal venous vascularity. The left ovary is visualized. The left ovary measures 2.9 cm x 2.3 cm x 1.8 cm. There is no left ovarian cyst or ovarian mass. There is no visualized left adnexal mass or complex lesion. There is normal arterial and normal venous vascularity. There is minimal fluid in the cul-de-sac. US/Pelvic w/ Transvaginal IMPRESSION: Normal female pelvis. Minimal amount of fluid is seen in the cul-de-sac. Electronically Signed: Rolo Cruz MD at 9:14 EDT ,
[2023-11-11 17:29] LABS: Thyroid Stim Hormone (TSH) 3.37 uIU/mL (0.358-3.74)
== END | disposition home or self-care (01) ==
LOC: US 16:07
PROVIDERS: PCP Family Medicine; Referring Provider Obstetrics & Gynecology; Visit Provider Obstetrics & Gynecology
DX: N93.9 Abnormal uterine and vaginal bleeding, unspecified (principal)
CPT/HCPCS: 36415; 76830; 76856; 84443

== ENCOUNTER → 2023-11-20 | Outpatient (CLI) | payer MEDICAID, SELFPAY ==
--- NOTE | 2023-11-20 | EMB_PTH ---
PATIENT: PATRICIO WYMAN LOC: [facility] U#:[id number] AGE/SX: 33/F ROOM: RE11/20/[address]: BILL Bowling : 1990 BED: DIS: 11/20/2023 SPEC #: [id number] RECD: 11/20/23 16:20 STATUS: GRAZYNA REVivienne #: [id number] SAMEER: 11/20/23 00:[address]: Sidra Malcolm NP DEPT: SURGICAL PATHOLOGY RECD BY: Joya Conklin ENTERED: 11/21/23 08:38 SP TYPE: ENDOM BX/C KATRIN DR: Dr. Valerio Maynard MD Tissues: Endometrium, NOS Procedures: Surgery Specimen Level IV HEADER OPERATION: Endometrial biopsy PRE-OP DIAGNOSIS: Abnormal uterine bleeding TISSUE SUBMITTED: Endometrial lining MICROSCOPIC DIAGNOSIS Endometrial biopsy: Proliferative endometrium with focal glandular and stromal breakdown. SJ/mr 11/22/2023 MICROSCOPIC DESCRIPTION Slides are reviewed. GROSS DESCRIPTION Received is one container labeled with the patient's name and not further designated. The specimen consists of multiple fragments of hemorrhagic soft tissue mixed with mucoid tissue measuring in aggregate 3.0 x 2.5 x 0.3cm. The entire specimen is submitted in one cassette. STEFF/ 11/21/23 TC: 5 CPT:29016
[2023-11-26 19:07] LABS: HPV APTIMA, High Risk Negative (Negative)
== END | disposition home or self-care (01) ==
LOC: LABSPEC 16:25
PROVIDERS: PCP Family Medicine; Referring Provider Nurse Practitioner Women's Health; Visit Provider Nurse Practitioner Women's Health
DX: Z12.4 Encounter for screening for malignant neoplasm of cervix (principal)
CPT/HCPCS: 87624; 88175; 88305; G0145

== ENCOUNTER → 2023-11-20 | Outpatient (CLI) | payer MEDICAID, SELFPAY | END | disposition home or self-care (01) | PROVIDERS: PCP Family Medicine; Referring Provider Nurse Practitioner Women's Health; Visit Provider Nurse Practitioner Women's Health | DX: N93.9 Abnormal uterine and vaginal bleeding, unspecified (principal) ==

== ENCOUNTER 2024-06-02 05:29 | Day surgery (SDC) | payer MEDICAID, SELFPAY ==
[2024-05-20 11:13] LABS: Hematocrit 44.3 % (37-47); Hemoglobin 14.1 g/dL (12.0-15.0); Magnesium 1.8 mg/dL (1.6-2.6); Mean Corp Hgb Conc 31.8 g/dL (32-36); Mean Corpuscular Hgb 27.6 pg (27.0-32.0); Mean Corpuscular Volume 86.7 fL (81-99); Mean Platelet Vol. 10.9 fl (6.2-12.0); Platelet Count 236 K/mm3 (150-450); RBC Distribution Width CV 13.2 % (11.6-14.6); RBC Distribution Width SD 41.7 fl (35.1-43.9); Red Blood Count 5.11 M/mm3 (4.2-5.4); White Blood Count 7.9 K/mm3 (4.4-11.0)
[2024-06-02] VITALS (14 sets, daily range): BP systolic 84–108; BP diastolic 40–68; PULSE 49–78; RESP 16; TEMP 36–36.4; O2SAT 97–100; BMI 32.2
[2024-06-02] MEDS: Gabapentin 600 MG Tablet PO (06:22)
[2024-06-02] MEDS: Phenazopyridine 95 MG Tablet 190 MG PO (06:22)
[2024-06-02] MEDS: Acetaminophen 500 MG Tablet 1000 MG PO (06:23)
[2024-06-02] MEDS: Magnesium 2 GM for ERAS IV (06:24)
[2024-06-02] MEDS: dexAMETHasone 4 MG/ML Vial 8 MG IV (06:24)
[2024-06-02] MEDS: Lactated Ringers 1,000 ML 40 ML IV ×2 (06:33→12:00)
--- NOTE | 2024-06-02 06:47 | PCM.PRE.AN2 ---
ASA Classification* ASA Classification ASA Classification: 2 Assessment & Plan Anesthesia* Anesthesia Assessment Anesthesia Assessment: Discussed sedation and/or anesthesia options, risks, benefits, and alternatives with patient/parents/legal guardian/POA. Questions invited. The patient/parents/legal guardian/POA seems to understand and agrees to proceed with anesthesia plan. Reviewed the physical assessment, medical history, allergy history and patient home medications list prior to surgery/procedure/anesthetic and documented any changes. Performed airway and anesthesia risk assessments. Anesthesia Type Anesthesia Type: General Anesthesia Focused Assessment* Temperature: 97.5 F Pulse Rate: 66 Blood Pressure: 95/66 Respiratory Rate: 16 Pulse Ox: 97 Airway Assessment Mouth opens: >3 cm Mallampati Score: II Focused Labs Anesthesia Preop lab: CBC WBC 7.9 K/mm3 (4.4-11.0) 05/20/24 10: RBC 5.11 M/mm3 (4.2-5.4) 05/20/24 10:23 Hgb 14.1 g/dL (12.0-15.0) 05/20/24 10:23 Hct 44.3 % (37-47) 05/20/24 10:23 Plt Count 236 K/mm3 (150-450) 05/20/24 10:23 CHEMISTRY Potassium 3.5 mmol/L (3.5-5.1) 05/24/23 21:03 Sodium 141 mmol/L (136-145) 05/24/23 21:03 Magnesium 1.8 mg/dL (1.6-2.6) 05/20/24 10:23 BUN 9 mg/dL (7-18) 05/24/23 21:03 Creatinine 1.02 mg/dL (0.55-1.02) 05/24/23 21:03 Glucose 92 mg/dL (74-106) 05/24/23 21:03 TSH 3.37 uIU/mL (0.358-3.74) 11/11/23 16:52 COAG PT 13.0 SECONDS (11.9-14.4) 08/04/13 14:55 HCG, Quant < 1 mIU/mL (1-3) 04/06/20 14:28 Urine Test Negative Negative 04/29/23 12:14 Tst Clinic Negative 11/20/23 14:02 Pre-Assessment Diagnosis/Proposed Procedure Planned Operative Procedure(s): TOTAL ROBOTIC HYSTERECTOMY BSO CYSTO Anesthesia History Anesthesia History - priming 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 When Was Last Pacemaker Check QUESTION #4 FULL TEXT: You/Your Family Experience fever (hyperthermia) with Anesthesia Last Oral Intake Last Oral intake: Last Oral Intake NPO since 22:00 06/02/24 06:17 Meds taken in AM with sips of water? Meds patient instructed to take am of surgery PONV PONV - priming mixture carrier: PONV - priming mixture carrier Female Yes 05/20/24 09:01 HX of Motion Sickness No 05/20/24 09:01 HX of N/V After Surgery No 05/20/24 09:01 Non-Smoker No 05/20/24 09:01 Duration of Surgery greater Yes 05/20/24 09:01 than 60 minutes Number of Risk Factors 2 05/20/24 09:01 PONV Score Moderate Risk 05/20/24 09:01 Height & Weight Height & Weight: Anesthesia: Height & Weight Height 5 ft 1 in 06/02/24 06:17 Weight: 77.4 kg 06/02/24 06:17 Body Mass Index (BMI) 32.2 06/02/24 06:17 Respiratory Assessment Respiratory Assessment - priming mixture carrier: Respiratory Tract Infection Hx - priming mixture carrier Hx Respiratory Tract Infection No 05/20/24 09:01 STOP Sleep Apnea STOP Sleep Apnea - priming mixture carrier: STOP Sleep Apnea - priming mixture carrier Hx Hypertension No 05/20/24 09:01 Hx Sleep Apnea Yes: NONCOMPLIANT 05/20/24 09:01 CPAP Yes 05/20/24 09:01 BIPAP No 05/20/24 09:01 Do you snore loudly (louder than talking or can be heard Do you often feel tired/ fatigued/ sleepy during daytime? Has anyone observed you stop breathing during sleep? STOP Results Positive 05/20/24 09:01 QUESTION #5 FULL TEXT : Do you snore loudly (louder than talking or can be heard through closed doors)? 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 Specify any problems Hx of Preganancy in last 3 No 05/20/24 09:01 Months Nurse Filling Out Transfusion DSCHRIBER 05/20/24 09:01 & Questions: Date: 05/20/24 05/20/24 09:01 Time: 09:01 05/20/24 09:01 Patient unable to answer at this time (ie. confused, unrespo /Reproduction History /Reproductive History - priming mixture carrier: /Reproductive Hx- priming mixture carrier Hx Now No 05/20/24 09:01 Gestational Age (in weeks): EDC: Hx Hx Para Hx Section SAB No 05/20/24 09:01 Active Medications Active Medications: Current Medications Generic Name Dose Route Start Last Admin Trade Name Freq PRN Reason Stop Dose Admin Acetaminophen 1,000 mg 06/02/24 07:30 06/02/24 06:23 Acetaminophen 500 Mg Tablet PO 06/02/24 07:31 1,000 mg PREOP ONE Administration Celecoxib 400 mg 06/02/24 07:30 06/02/24 06:24 Celecoxib 200 Mg Capsule PO 06/02/24 07:31 Not Given X1 ONE Dexamethasone Sodium Phosphate 8 mg 06/02/24 07:30 06/02/24 06:24 Dexamethasone 4 Mg/Ml Vial IV 06/02/24 07:31 8 mg X1 ONE Administration Gabapentin 600 mg 06/02/24 07:30 06/02/24 06:22 Gabapentin 600 Mg Tablet PO 06/02/24 07:31 600 mg PREOP ONE Administration Lactated Ringer's 1,000 mls @ 40 mls/hr 06/02/24 07:30 06/02/24 06:33 IV 40 mls/hr .Q25H GARY Administration Lactated Ringer's 1,000 mls @ 70 mls/hr 06/02/24 07:30 IV .[id number] GARY Cefazolin Sodium 2 gm/ N/A 20 mls @ 400 mls/hr 06/02/24 07:30 IV 06/02/24 07:32 PREOP ONE Magnesium Sulfate 2 gm/ 104 mls @ 208 mls/hr 06/02/24 07:30 06/02/24 06:24 Dextrose IV 06/02/24 07:59 208 mls/hr X1 ONE Administration Insulin Human Lispro 0 unit 06/02/24 07:30 Insulin Lispro 100 Unit/Ml Insuln.Pen SC 06/02/24 18:00 Q4H PRN PRN BG >/= 180, SEE PROTOCOL Protocol Ondansetron HCl 4 mg 06/02/24 07:30 Ondansetron 4 Mg/2 Ml Vial IV 06/02/24 07:31 X1 ONE Phenazopyridine HCl 190 mg 06/02/24 07:30 06/02/24 06:22 Phenazopyridine 95 Mg Tablet PO 06/02/24 07:31 190 mg X1 ONE Administration [facility] Medical History Former smoker Wears glasses Marijuana use Dietary restriction Wears dentures Anxiety Alcohol use Restless legs Gastric reflux History of pain when walking History of edema Tobacco use affecting , antepartum Narcolepsy History of drug use Back pain Anemia unusual tiredness Home Medications ?Medication ?Instructions ?Recorded ?Last Taken ?Type methylphenidate HCl 10 mg tablet 10 mg PO QDAY 05/13/24 06/01/24 History (Ritalin) oxcarbazepine 150 mg tablet 300 mg PO BID 05/13/24 06/01/24 History (Trileptal) Allergy/AdvReac Type Severity Reaction Status Date / Time egg Allergy Mild Other Verified 06/02/24 06:16 adhesive tape Allergy Unknown Verified 06/02/24 06:16 Latex, Natural Rubber Allergy Hives Verified 06/02/24 06:16 aspirin AdvReac Abd Verified 06/02/24 06:16 cramps/diarrhea dicyclomine HCl (From Bentyl) AdvReac Abd Verified 06/02/24 06:16 cramps/diarrhea erythromycin base AdvReac Abd Verified 06/02/24 06:16 (Erythromycin Base) cramps/diarrhea naproxen AdvReac Abd Verified 06/02/24 06:16 cramps/diarrhea NSAIDS (Non-Steroidal AdvReac Other Verified 06/02/24 06:37 Anti-Inflamma sulfamethoxazole (From AdvReac Abd Verified 06/02/24 06:16 Bactrim) cramps/diarrhea trimethoprim (From Bactrim) AdvReac Abd Verified 06/02/24 06:16 cramps/diarrhea Family History Grandmother COPD (chronic obstructive pulmonary disease) Aunt Diabetes Fibromyalgia Mother Thyroid disorder Fibromyalgia Surgical History Hx of foot surgery H/O gastric sleeve H/O section Hx laparoscopic cholecystectomy History of Social History Smoking Status: Former smoker alcohol intake: never substance use type: does not use and former substance user caffeine: Yes what type of physical activity do you participate in: none seatbelt use: always do you feel safe at home: Yes additional social history: Nicolasa- 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
[2024-06-02 06:52] LABS: Internal QC Validated? YES +Cl - CLEAR BKGD; Pregnancy, Urine Negative Negative; Record Kit Lot#,Urine Preg 869294
--- NOTE | 2024-06-02 07:03 | NURSING ---
pt c/o throat tightness when infusing mag, per dr randall stop and d/c magnesium. pt sx stopped shortly after stopping infusion.
[2024-06-02 07:14] LABS: Bedside Glucose 85 mg/dL (74-106)
--- NOTE | 2024-06-02 07:22 | PCM.HP.BLA ---
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: No Is patient in pain?: No Allergies egg Allergy (Mild, Verified 05/13/24 11:55) Otheradhesive tape Allergy (Verified 05/13/24 11:55) UnknownLatex, Natural Rubber Allergy (Verified 05/13/24 11:55) Hivesaspirin Adverse Reaction (Verified 05/13/24 11:55) Abd cramps/diarrheadicyclomine HCl (From Bentyl) Adverse Reaction (Verified 05/13/24 11:55) Abd cramps/diarrheaerythromycin base (Erythromycin Base) Adverse Reaction (Verified 05/13/24 11:55) Abd cramps/diarrheanaproxen Adverse Reaction (Verified 05/13/24 11:55) Abd cramps/diarrheasulfamethoxazole (From Bactrim) Adverse Reaction (Verified 05/13/24 11:55) Abd cramps/diarrheatrimethoprim (From Bactrim) Adverse Reaction (Verified 05/13/24 11:55) Abd cramps/diarrhea Medications ?Medication ?Instructions ?Recorded ?Confirmed ?Type methylphenidate HCl 10 mg tablet 10 mg PO QDAY 05/13/24 05/13/24 History (Ritalin) oxcarbazepine 150 mg tablet 150 mg PO BID 05/13/24 05/13/24 History (Trileptal) Post menopausal: No Patient : No : No PFSH Medical History Wears glasses Marijuana use Dietary restriction Wears dentures Anxiety Alcohol use Restless legs Gastric reflux Smoker Shortness of breath on exertion History of pain when walking History of edema Tobacco use affecting , antepartum Narcolepsy History of drug use Back pain Anemia unusual tiredness Surgical History Hx of foot surgery H/O gastric sleeve H/O section Hx laparoscopic cholecystectomy History of Family History Grandmother COPD (chronic obstructive pulmonary disease)Aunt Diabetes FibromyalgiaMother Thyroid disorder Fibromyalgia Social History Smoking Status: Current every day smoker tobacco type: cigarettes alcohol intake: never substance use type: does not use and former substance user caffeine: Yes what type of physical activity do you participate in: none seatbelt use: always do you feel safe at home: Yes additional social history: Nicolasa- 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 She has had 3 sections and was told should not get again after her last one. Her had a vasectomy. Her main complaint is bleeding x 2 weeks then off a week, etc. She just had the gastric sleeve and removal of nexplanon (in for 3 years) and was told that with hormone changes this is common but that hysterectomy is needed to ultimately control the bleeding changes that are to be expected. ultrasound shows the following: FINDINGS: The uterus is anteverted and is in a midline position. The uterus measures 6.1 cm x 3.8 cm x 2.6 cm. Normal uterine cervix. The endometrium measures 1.9 mm in thickness, and is heterogeneous (striated). There is no demonstrated endometrial mass. There is no demonstrated myometrial mass. I.U.D. - The patient does not have an I.U.D. The right ovary is visualized. The right ovary measures 3.4 cm x 2.8 cm x 2.2 cm. There is no right ovarian cyst or ovarian mass. There is no visualized right adnexal mass or complex lesion. There is normal arterial and normal venous vascularity. The left ovary is visualized. The left ovary measures 2.9 cm x 2.3 cm x 1.8 cm. There is no left ovarian cyst or ovarian mass. There is no visualized left adnexal mass or complex lesion. There is normal arterial and normal venous vascularity. There is minimal fluid in the cul-de-sac. US/Pelvic w/ Transvaginal IMPRESSION: Normal female pelvis. Minimal amount of fluid is seen in the cul-de-sac. History 16 Elective abortions Hx Para 3 Spontaneous abortions Hx # Term Pregnancies Ectopic pregnancies Hx # Pregnancies Multiple births # of living children Past Pregnancies Del. Date Name GA/Weeks Outcome Route Bth Weight Gen Labor Lgth Anesthesia Del Locatn Provider FOB Unknown 2007 Oumar live - full term Unknown 2012 Jane live - full term 12/21/19 Nicolasa live - full term 7lbs 4oz Male spinal [facility] Dr. Cely Agustin Delivery Date: Last Updated by: Cely Agustin MD CPD Delivery Date: 12/21/19 Last Updated by: Jenniffer Prasad Scar tissue, thin lower uterine segment ROS Const ROS Unobtainable: All systems reviewed & are unremarkable except as noted in H Resp Resp: Reports system reviewed and no additional complaints, except as documented; Denies cough GI GI: Reports as per HPI Psych Psych: Reports system reviewed and no additional complaints, except as documented Exam Const General: cooperative, healthy appearing, comfortable and no acute distress Resp Effort & Inspection: normal respiratory effort Skin General: no rashes or lesions noted Psych Appearance: grossly normal Speech and Movement: speech and movement normal Coding Level of Care Code Off vis,est,level 4 Diagnoses Abnormal uterine bleeding N93.9 Assessment and Plan Assessment and Plan (1) Abnormal uterine bleeding: Status: Acute Plan: After discussing the patient's diagnosis and treatment plan options, patient wishes to proceed with surgical management. I have discussed with the patient the risks, benefits, and alternatives of the procedure which include but are not limited to risks of anesthesia, bleeding, infection, possible damage to bowel, bladder, or surrounding vasculature which could lead to additional surgery to evaluate any complications. Patient agrees to procedure and wishes to proceed. ACOG/uptodate references given for additional information regarding procedure. plan is for total robotic hysterectomy, bilateral salpingectomy, and cystoscopy.
--- NOTE | 2024-06-02 07:23 | DCINST_ITS ---
Discharge Instructions Diet Discharge Diet: No restrictions DC O2, CPAP, BIPAP needs Additional Home O2 Discharge instructions: No Dressing / Incision Discharge Activity: May Not Drive (for 48 hours ) May resume sexual activity in: 6 weeks Weight Bearing Status: Full weight bearing Lifting Restrictions: 10 pounds Dressing / Incision Call your doctor if your incision/area has: Continuous Slow Oozing, Sudden Increased Bleeding, Increased Pain/ Swelling, Increased Redness and Foul Smelling Discharge Call your doctor if you observe: Fever of 101 or Higher, Using more than 1 pad per hour, Shortness of breath, Chest pain and Uncontrolled pain Suture Line Care: Avoid Pulling/Pushing and Avoid Pinching/Bending Remove Dressing in: 1 week (if present) Cleanse incision/area with: Soap & Water and Keep Dressing Clean & Dry Follow Up Care Please Follow Up With: Milla Vieira DO When: Call to make an appointment with your doctor for a postop visit in 2 and 6 weeks Test Results: Test results from this visit will be discussed in further detail at your follow- up appointment, if applicable. Discharge Plan Admission Primary Reason for Your Visit: hysterectomy Attending Provider: Milla Vieira Primary Care Provider: Valerio Maynard Consulting Providers: Vinicio Smith Print Language: [place] Discharge Orders/Prescriptions Prescriptions: New ibuprofen 800 mg tablet 800 mg PO Q8H PRN (Reason: pain) Qty: 30 0RF oxycodone-acetaminophen [Percocet] 5-325 mg tablet 1 tab PO Q4H PRN (Reason: pain) 7 Days Qty: 30 0RF Rx Instructions: 1-2 tabs q 4 hrs as needed for pain Continued methylphenidate HCl [Ritalin] 10 mg tablet 10 mg PO QDAY oxcarbazepine [Trileptal] 150 mg tablet 300 mg PO BID Referrals / Follow Up: Valerio Maynard MD [Primary Care Provider] - Disposition Disposition (needs filled in before D/C Order can be placed): Home, Self Care
[2024-06-02] MEDS: Cefazolin 2 GM in Syringe IV (07:28)
--- NOTE | 2024-06-02 07:30 | HYST_PTH ---
PATIENT: PATRICIO WYMAN LOC: [facility] [place] U#:[id number] AGE/SX: 34/F ROOM: RE06/02/[address]: Dr. Milla Vieira DO : 1990 BED: DIS: 06/02/2024 SPEC #: [id number] RECD: 06/02/24 12:21 STATUS: GRAZYNA HOLLOWAY #: [id number] SAMEER: 06/02/24 07:[address]: Milla Vieira DEPT: SURGICAL PATHOLOGY RECD BY: Eugenie Patton ENTERED: 06/02/24 13:21 SP TYPE: HYSTERECT OTHR DR: MD Dr. Valerio Contreras MD Tissues: Uterus, NOS Procedures: Surgery Specimen Level V HEADER OPERATION: Laparoscopic robotic hysterectomy, bilateral salpingectomy PRE-OP DIAGNOSIS: Abnormal uterine bleeding TISSUE SUBMITTED: Uterus, cervix, bilateral fallopian tubes MICROSCOPIC DIAGNOSIS Uterus, hysterectomy: Cervix - Nabothian cysts and mild chronic inflammation. Endometrium - Secretory endometrium. Myometrium - Superficial adenomyosis. Right and left fallopian tubes- No pathologic change. AM. 06/03/2024 MICROSCOPIC DESCRIPTION Slides are reviewed. GROSS DESCRIPTION Received in fixative is one container labeled with the patient's name and designated uterus. The specimen consists of a uterus with attached cervix and attached right and left fallopian tubes. The uterus with cervix measures 8.5 x 5.0 x 3.5 cm and weighs 60 gm. The ectocervix is unremarkable round in contour. The endocervical canal measures 3.0 cm in length and is grossly unremarkable. The elongated endometrial cavity measures 3.5 x 1.5 cm. The velvety, light [place] endometrium measures up to 0.2 cm in thickness. The myometrium measures 1.8 cm in average thickness and is grossly unremarkable. The fallopian tubes on average measure 6.0cm in length and in average diameter at 0.6cm. Engineer Geophysical Laboratory sections are submitted as follows: 1 - anterior cervix, 2 - posterior cervix, 3 & 4 - anterior uterine wall, 5- posterior uterine wall, 6 - right fallopian tube, 7 - left fallopian tube. / AM: 06/02/2024 TC:5 CPT: 93058
--- NOTE | 2024-06-02 09:06 | OP.PCM_ITS ---
Problems Associated Problem List Diagnoses (1) Abnormal uterine bleeding: Operative Report (Standard) Operative Information Surgery/Procedure Performed: total robotic hysterectomy, bilateral salpingectomy, cystoscopy Surgeon: Milla Vieira Date of Procedure: 06/02/24 Procedure Start Time: 07:58 Procedure Stop Time: 09:13 Pre-Operative Diagnosis: menorrhagia, history of 3 sections Post-Operative Diagnosis: menorrhagia, history of 3 sections Select all DRAINS/GRAFTS/IMPLANTS that apply: None Type of Anesthesia: General Estimated Blood Loss: 50cc Specimen collected: Yes Description of specimen(s) removed: uterus, cervix, fallopian tubes Description of surgery: Findings: 8 cm size uterus, normal appearing ovaries and tubes. On exploration of the abdominal cavity the uterus, adnexa, bowel, and liver were found to be normal. Cystoscopy showed no evidence of leaking at approximately 250 cc of normal saline, positive ureteral orifices and jet flow are seen and no suture material was appreciated in the bladder. Specimens removed: Uterus and cervix, Bilateral tubes Reason for surgery: This is a 34 year-old G4, P3 who presented to my office with history of heavy periods and 3 prior sections. The planned procedure is for a robotic hysterectomy the risks benefits and alternatives were discussed with the patient the patient had a clear understanding of the procedure and a consent form was signed. Procedure: The patient was placed in the dorsal low lithotomy position and prepped and draped in the normal sterile fashion both abdominally and in the perineum. Her legs were placed in stirrups a Do catheter was inserted into the urethra without difficulty. A weighted speculum was placed in the vagina and a single- tooth tenaculum was used to grasp the anterior lip of the cervix. An advincula uterine manipulator was inserted through the cervix without complication. It was then tied into place at the 2 and 10:00 locations on the cervix. Gloves were changed and attention was turned towards the abdomen. Approximately 19 cm above the pubic symphysis in the midline, and after Marcaine injection, a 8 mm incision was made. An 8 mm trocar was inserted through the laparoscope, then inserted into the abdomen under direct visualization using the laparoscope. Good abdominal placement was noted and no complications were appreciated. An air se al device was utilized to create pneumoperitoneum. At 13 cm lateral to the midline on the left and right sides 8 mm accessory ports were placed. Next a left upper quadrant 8 mm video library assistant port site was placed. The patient was placed in steep Trendelenburg position. The robot was docked. Fine adhesions of the omentum to the anterior abdominal wall were taken down using the vessel sealer device. The hysterectomy was initiated first by taking down the round ligament on each side using the vessel sealer device. The fallopian tubes were grasped and the underlying mesosalpinx was cauterized and cut to the level of the cornua, removing the tubes completely with the vessel sealer device. These areas were freed without complication the broad ligament was then and taken down using the vessel sealer device. Next the bladder flap was taken down without complication. This was done using monopolar cautery to the level of the cervical vaginal junction. After the bladder flap was created, uterine vessels were then isolated and cauterized using the vessel sealer device and EndoShears. At this point the uterine vessels were taken down further starting from the ascending branch, dissecting along the edges of the cervix to the level of the cervical vaginal junction with hemostasis appreciated. The cervical vaginal junction was then using monopolar cautery in a circumferential pattern across the superior aspect of the cervix. The specimen was delivered through the vagina and sent to pathology. The remaining vaginal cuff was then closed using a V lock suture. This was performed in a running technique. Excellent hemostasis was obtained and good closure was noted. Irrigation was then performed. All operative sites were noted to be hemostatic. A cystoscopy was performed with a 70 degree cystoscope through the urethra into the bladder without complication. The bladder was instilled with approximately 250 cc of normal saline. Intraoperative images were made. Ureteral orifices and jets were identified. No suture material was appreciated in the bladder. The bladder was then drained and cystoscope was removed. The abdominal cavity was again examined using the laparoscope after the robot was undocked. All operative sites were noted to be hemostatic. The trochars were removed under direct visualization without complication and pneumoperitoneum was reduced. At this point the skin was then closed using 4-0 Monocryl subcuticular stitch and sealed with surgical glue. The patient tolerated the procedure well sponge lap and needle counts were correct x2 the patient was taken to the recovery room in stable condition. Surgical Findings: normal uterus, tubes, and ovaries. Fine adhesions of omentum to the anterior abdominal wall. Director Pharmaceutical electrical automation engineer: Yes Forms Builder: Buddy Lynch Tasks completed by first grade teacher: Closing, Insert Trochanter and Retracting Additional video library assistant?: No Complications Complications: No Admit VTE Documentation VTE Mechan Device Prophylaxis: SCD's VTE Pharm Prophylaxis ordered?: No Multi Select Codes Urinary/Genital Urinary/Genital CPT Codes: 83513 TLH+BS/O <250gr uterus
[2024-06-02] MEDS: Bupivacaine 0.25% 30 ML Vial (09:07)
--- NOTE | 2024-06-02 09:31 | PCM.POST.ANE ---
Anesthesia: Postop Eval I Current Vital Signs Temperature: 97.3 F Pulse Rate: 77 Blood Pressure: 94/55 Respiratory Rate: 16 Pulse Ox: 99 Oxygen Delivery Method: Simple Mask Oxygen Flow Rate (L/min): 6 Assessment Airway patent: Yes Spontaneous unlabored respirations: Yes Mental status: Awake nausea: No Vomiting: No Anesthesia Complication: No Fluid Hydration Crystalloid volume administer (ml): 1,400 Total IV fluid infused: 1,400 Progress Note Anesthesia document: Postop Eval 1 completed: Yes
[2024-06-02] MEDS: Ondansetron 4 MG/2 ML Vial IV (10:06)
--- NOTE | 2024-06-02 10:34 | POSTOPAN2_ITS ---
Anesthesia Postop Eval I Sum Postop Eval Completion status Anesthesia document: Postop Eval 1 completed: Yes Anesthesia Postop Eval I Summary Anesthesia Postop Eval I Summary: Anesthesia Postop Eval I: Assessment Summary Airway patent Yes 06/02/24 09:32 RESEARCH AND EVALUATION MANAGER.[email or web address] Spontaneous unlabored Yes 06/02/24 09:32 RESEARCH AND EVALUATION MANAGER.[email or web address] respirations Mental status Awake 06/02/24 09:32 RESEARCH AND EVALUATION MANAGER.HBARR nausea No 06/02/24 09:32 RESEARCH AND EVALUATION MANAGER.HBARR Vomiting No 06/02/24 09:32 RESEARCH AND EVALUATION MANAGER.[email or web address] Anesthesia Postop Eval I: Fluid Summary Crystalloid volume administer 1,400 06/02/24 09:32 RESEARCH AND EVALUATION MANAGER.HBARR (ml) Colloids volume administered ( ml) Blood Product volume administered (ml) Total IV fluid infused 1,400 06/02/24 09:32 RESEARCH AND EVALUATION MANAGER.HBARR Anesthesia Postop Eval I: Summary Notes Anesthesia Complication No 06/02/24 09:32 RESEARCH AND EVALUATION MANAGER.HBARR Anesthesia Complication Comment: Post-operative progress note Anesthesia: Postop Eval II Evaluation Mental status: Awake Pain Level: 0 nausea: No Vomiting: No
--- NOTE | 2024-06-02 10:34 | PCM.POSTANE2 ---
Anesthesia Postop Eval I Sum Postop Eval Completion status Anesthesia document: Postop Eval 1 completed: Yes Anesthesia Postop Eval I Summary Anesthesia Postop Eval I Summary: Anesthesia Postop Eval I: Assessment Summary Airway patent Yes 06/02/24 09:32 COOLER [email or web address].[email or web address] Spontaneous unlabored Yes 06/02/24 09:32 COOLER [email or web address].HBARR respirations Mental status Awake 06/02/24 09:32 COOLER [email or web address].HBARR nausea No 06/02/24 09:32 COOLER SERVICER.HBARR Vomiting No 06/02/24 09:32 COOLER [email or web address].HBARR Anesthesia Postop Eval I: Fluid Summary Crystalloid volume administer 1,400 06/02/24 09:32 COOLER [email or web address].HBARR (ml) Colloids volume administered ( ml) Blood Product volume administered (ml) Total IV fluid infused 1,400 06/02/24 09:32 COOLER [email or web address].HBARR Anesthesia Postop Eval I: Summary Notes Anesthesia Complication No 06/02/24 09:32 COOLER [email or web address].HBARR Anesthesia Complication Comment: Post-operative progress note Anesthesia: Postop Eval II Evaluation Mental status: Awake Pain Level: 0 nausea: No Vomiting: No
[2024-06-02] MEDS: oxyCODONE 5 MG Tablet PO (12:00)
== END 2024-06-02 14:15 | disposition home or self-care (01) ==
LOC: SDC 05:29 → AC 05:29
PROVIDERS: Anesthesiology; PCP Family Medicine; Referring Provider Obstetrics & Gynecology; Visit Provider Obstetrics & Gynecology
PROC: 0UT90ZZ Resection of Uterus, Open Approach (ICD-10-PCS; CPT 58571; principal; 2024-06-02 07:10)
DX: N80.03 Adenomyosis of the uterus (principal); N93.9 Abnormal uterine and vaginal bleeding, unspecified; N92.0 Excessive and frequent menstruation with regular cycle; K21.9 Gastro-esophageal reflux disease without esophagitis; F17.210 Nicotine dependence, cigarettes, uncomplicated; N88.8 Other specified noninflammatory disorders of cervix uteri; N72 Inflammatory disease of cervix uteri; Z90.3 Acquired absence of stomach [part of]; Z79.899 Other long term (current) drug therapy
CPT/HCPCS: 58571; S2900; 00840; 36415; 81025; 82962; 83735; 85027; 86850; 86900; 86901; 88307; J7120; J2405

== ENCOUNTER → 2024-07-20 | Outpatient (CLI) | payer MEDICAID, SELFPAY | END | disposition home or self-care (01) | LOC: BWCLAB 15:04 | PROVIDERS: PCP Family Medicine; Referring Provider Obstetrics & Gynecology; Visit Provider Obstetrics & Gynecology | DX: N76.0 Acute vaginitis (principal) | CPT/HCPCS: 87070; 87205 ==

== ENCOUNTER 2025-02-18 16:14 | Emergency (ER) | payer MEDICAID, SELFPAY ==
[2025-02-18 16:16] VITALS: BP 123/93; PULSE 102; RESP 18; TEMP 36.6; O2SAT 99; BMI 31.9
[2025-02-18 16:44] LABS: Hematocrit 45.7 % (37-47); Hemoglobin 15.7 g/dL (12.0-15.0); Immature Granulocytes Count 0.040 X10^3/uL (0.0-0.0); Mean Corp Hgb Conc 34.4 g/dL (32-36); Mean Corpuscular Volume 85.1 fL (81-99); Mean Platelet Vol. 10.8 fl (6.2-12.0); NRBC Flagged by Analyzer 0 % (0-5); POSITIVE DIFFERENTIAL YES; Platelet Count 299 K/mm3 (150-450); RBC Distribution Width CV 12.9 % (11.6-14.6); RBC Distribution Width SD 39.9 fl (35.1-43.9); Red Blood Count 5.37 M/mm3 (4.2-5.4); White Blood Count 13.1 K/mm3 (4.4-11.0)
--- NOTE | 2025-02-18 16:46 | EX.ED.DYSGE1 ---
HPI <YOLANAD Taveras - Last Filed: 02/18/25 18:33> History of Present Illness Chief Complaint: General Illness Narrative Narrative: 34-year-old female was brought in by EMS. Her provides history because she is having difficulty speaking. She was driving home after dropping there child off when she called her stating that both hands were tingling and cramping and she felt like her face was swelling so he instructed her to call 911. She is awake but is not able to speak. Her cannot really tell me much about her medical history. Chart shows she has a history of drug abuse but nothing else significant. PFS <YOLANDA Taveras - Last Filed: 02/18/25 18:33> [facility] Medical History Former smoker Wears glasses Marijuana use Dietary restriction Wears dentures Anxiety Alcohol use Restless legs Gastric reflux History of pain when walking History of edema Tobacco use affecting , antepartum Narcolepsy History of drug use Back pain Anemia unusual tiredness Home Medications ?Medication ?Instructions ?Recorded ?Last Taken ?Type methylphenidate HCl 10 mg tablet 10 mg PO QDAY 05/13/24 06/01/24 History (Ritalin) oxcarbazepine 150 mg tablet 300 mg PO BID 05/13/24 06/01/24 History (Trileptal) Allergy/AdvReac Type Severity Reaction Status Date / Time egg Allergy Mild Other Verified 02/18/25 16:20 adhesive tape Allergy Unknown Verified 02/18/25 16:20 Latex, Natural Rubber Allergy Hives Verified 02/18/25 16:20 aspirin AdvReac Abd Verified 02/18/25 16:20 cramps/diarrhea dicyclomine HCl (From Bentyl) AdvReac Abd Verified 02/18/25 16:20 cramps/diarrhea erythromycin base AdvReac Abd Verified 02/18/25 16:20 (Erythromycin Base) cramps/diarrhea naproxen AdvReac Abd Verified 02/18/25 16:20 cramps/diarrhea sulfamethoxazole (From AdvReac Abd Verified 02/18/25 16:20 Bactrim) cramps/diarrhea trimethoprim (From Bactrim) AdvReac Abd Verified 02/18/25 16:20 cramps/diarrhea Family History Grandmother COPD (chronic obstructive pulmonary disease) Aunt Diabetes Fibromyalgia Mother Thyroid disorder Fibromyalgia Surgical History Hx of foot surgery H/O gastric sleeve H/O section Hx laparoscopic cholecystectomy History of Social History Smoking Status: Former smoker alcohol intake: never substance use type: does not use and former substance user caffeine: Yes what type of physical activity do you participate in: none seatbelt use: always do you feel safe at home: Yes additional social history: Nicolasa- 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 EYES: Normal inspection. NECK: Normal inspection. RESP: No respiratory distress, CTAB. CVS: Slightly tachycardic with regular rhythm, no murmur, no gallop. ABD: Soft and nontender, no guarding or rebound, nondistended. SKIN: Color normal, no rash, warm, dry, intact. EXTREMITIES: Both hands are clenched, 2+ radial and DP pulses. NEURO: Alert and can nod yes or no to questions appropriately, she makes sounds like she wants to vocalize but does not speak. Follows commands. PSYCH: Normal affect. Const Vital Signs: 02/18/25 16:16 02/18/25 17:33 02/18/25 18:15 Temperature 97.8 F Temperature Source Oral Pulse Rate 102 H 63 Respiratory Rate 18 15 Respiratory Effort Short of Breath Respiratory Pattern Tachypnea Blood Pressure 123/93 H 114/64 Blood Pressure Mean 103 80 Pulse Ox 99 98 Oxygen Delivery Method Room Air Room Air 02/18/25 18:26 Temperature 97.8 F Temperature Source Pulse Rate 63 Respiratory Rate 15 Respiratory Effort Respiratory Pattern Blood Pressure 114/64 Blood Pressure Mean 80 Pulse Ox 98 Oxygen Delivery Method <Dr. Flako Victor DO - Last Filed: 02/19/25 00:14> Physical Exam Const Vital Signs: 02/18/25 16:16 02/18/25 17:33 02/18/25 18:15 Temperature 97.8 F Temperature Source Oral Pulse Rate 102 H 63 Respiratory Rate 18 15 Respiratory Effort Short of Breath Respiratory Pattern Tachypnea Blood Pressure 123/93 H 114/64 Blood Pressure Mean 103 80 Pulse Ox 99 98 Oxygen Delivery Method Room Air Room Air 02/18/25 18:26 Temperature 97.8 F Temperature Source Pulse Rate 63 Respiratory Rate 15 Respiratory Effort Respiratory Pattern Blood Pressure 114/64 Blood Pressure Mean 80 Pulse Ox 98 Oxygen Delivery Method MDM <YOLANDA Taveras - Last Filed: 02/18/25 18:33> [facility] Narrative Medical decision making narrative: Differential includes but not limited to electrolyte derangement, anxiety 34-year-old female presents with inability to speak and reported tingling and cramping in both hands. She had called her relating the symptoms. She is awake and alert and appears anxious. She is tachycardic at 102 with otherwise stable vital signs. She can make sounds like she wants to vocalize but does not speak. She can nod yes or no appropriately and motion with her hands. Both hands are clenched. She has no focal neurological deficits and no unilateral symptoms so I am not concerned for a stroke. This seems more like an anxiety reaction so I ordered IV Ativan. WBC is 13.1 and Hgb slightly elevated at 15.7 so this could be hemoconcentration. Electrolytes are normal. CO2 is slightly low at 17.3 likely from her tachypnea on initial presentation. Gap is 20. Glucose normal at 93. Urine drug screen is negative. After IV fluids and Ativan patient looks much more comfortable, is speaking and requesting to eat something, and her hands have relaxed. I discussed that this could be an anxiety attack but she is adamant that this is not from her anxiety because it is well-managed. She states she was worried about a stroke but I reassured her that she does not have strokelike symptoms and nothing was unilateral or focal. I recommended follow-up with her primary care doctor and she was discharged in stable condition. History & Record Review Discussion w/independent historian: Patient and Significant other Lab Data Attestation: I reviewed the patient's lab results. Labs: Laboratory Results - last 24 hr 02/18/25 02/18/25 16:20 17:07 WBC 13.1 H RBC 5.37 Hgb 15.7 H Hct 45.7 MCV 85.1 MCH 29.2 MCHC 34.4 RDW Std Deviation 39.9 RDW Coeff of [place] 12.9 Plt Count 299 MPV 10.8 Immature Gran % (Auto) 0.300 Neut % (Auto) 49.0 Lymph % (Auto) 44.1 H [place] % (Auto) 5.0 Eos % (Auto) 0.8 Baso % (Auto) 0.8 Absolute Neuts (auto) 6.4 Absolute Lymphs (auto) 5.77 H Nucleated RBC % 0 Differential Comment SCANNED Platelet Estimate ADEQUATE Sodium 140 Potassium 3.8 Chloride 103 Carbon Dioxide 17.3 L Anion Gap 20 H BUN 9 Creatinine 1.05 Estim Creat Clear Calc 69.41 Est GFR (MDRD) Non-Af 71 BUN/Creatinine Ratio 8.5 L Glucose 93 Calcium 9.9 Urine Opiates Screen NEGATIVE U Buprenorphine Qual NEGATIVE Ur Oxycodone Screen NEGATIVE Urine Methadone Screen NEGATIVE Urine Fentanyl Screen NEGATIVE Ur Barbiturates Screen NEGATIVE Ur Phencyclidine Scrn NEGATIVE Ur Amphetamines Screen NEGATIVE U Benzodiazepines Scrn NEGATIVE Urine Cocaine Screen NEGATIVE U Cannabinoids Screen NEGATIVE <Dr. Flako Victor, DO - Last Filed: 02/19/25 00:14> [facility] Lab Data Labs: Laboratory Results - last 24 hr 02/18/25 02/18/25 16:20 17:07 WBC 13.1 H RBC 5.37 Hgb 15.7 H Hct 45.7 MCV 85.1 MCH 29.2 MCHC 34.4 RDW Std Deviation 39.9 RDW Coeff of [place] 12.9 Plt Count 299 MPV 10.8 Immature Gran % (Auto) 0.300 Neut % (Auto) 49.0 Lymph % (Auto) 44.1 H [place] % (Auto) 5.0 Eos % (Auto) 0.8 Baso % (Auto) 0.8 Absolute Neuts (auto) 6.4 Absolute Lymphs (auto) 5.77 H Nucleated RBC % 0 Differential Comment SCANNED Platelet Estimate ADEQUATE Sodium 140 Potassium 3.8 Chloride 103 Carbon Dioxide 17.3 L Anion Gap 20 H BUN 9 Creatinine 1.05 Estim Creat Clear Calc 69.41 Est GFR (MDRD) Non-Af 71 BUN/Creatinine Ratio 8.5 L Glucose 93 Calcium 9.9 Urine Opiates Screen NEGATIVE U Buprenorphine Qual NEGATIVE Ur Oxycodone Screen NEGATIVE Urine Methadone Screen NEGATIVE Urine Fentanyl Screen NEGATIVE Ur Barbiturates Screen NEGATIVE Ur Phencyclidine Scrn NEGATIVE Ur Amphetamines Screen NEGATIVE U Benzodiazepines Scrn NEGATIVE Urine Cocaine Screen NEGATIVE U Cannabinoids Screen NEGATIVE Treatment and Re-Evaluation :: Attending note: I have personally performed a face to face assessment of the patient and have reviewed the JAN note. I personally made/approved the management plan and take responsibility for the patient management. I performed a substantive portion of the visit including all aspects of the following. My smith findings include: Brought in by EMS after feeling contractions cramping to her hands while driving. History of panic attacks and records. She states she was not stressed. No recent vomiting diarrhea. Exam of contractions of her fingers. She was not talking initially however she is understanding. There is no focal deficits. Basic labs were checked along with tox cream she given IV fluids and Ativan. Reevaluation contractions were improving slight decrease CO2 possible from hyperventilation however she was denying this. Talk screen was negative. She clinically is feeling better. Will discharge with outpatient follow-up. Discharge Plan Triage Chief Complaint: General Illness ED Midlevel Provider: Caitie Mejias ED Provider: Flako Victor Dx/Rx/DC Orders Clinical Impression: Cramping of hands, Anxiety Instructions: ED Anxiety Reaction Prescriptions: No Action methylphenidate HCl [Ritalin] 10 mg tablet 10 mg PO QDAY oxcarbazepine [Trileptal] 150 mg tablet 300 mg PO BID Primary Care Provider: Valerio Maynard Referrals: Valerio Maynard MD [Primary Care Provider] - Activity Restrictions/Additional Instructions: I think you are having an anxiety reaction. You were treated with IV Ativan which helped and now seems to be doing better. I recommend you follow-up with your primary care doctor. Print Language: Senegalese Disposition Disposition: Home, Self Care Discharge Date/Time: 02/18/25 18:46
[2025-02-18 16:55] LABS: Differential Indicated SCAN CRITERIA MET
[2025-02-18 17:07] LABS: Anion Gap 20 (5-15); BUN 9 mg/dL (4-19); BUN/Creat Ratio 8.5 RATIO (10-20); Calcium,Total 9.9 mg/dL (7.6-11.0); Carbon Dioxide 17.3 mmol/L (21.0-32.0); Chloride 103 mmol/L (98-108); Estimated Creatinine Clearance 69.41 ml/min (50-250); Glucose 93 mg/dL (70-99); Potassium 3.8 mmol/L (3.3-5.1)
[2025-02-18] MEDS: Lorazepam 2 MG/ML WCH Syringe 1 MG IV (17:09)
[2025-02-18] MEDS: 0.9% Normal Saline (1000mL) 1,000 ML 999 ML IV (17:14)
[2025-02-18 17:35] LABS: Barbiturate Urine NEGATIVE (< 200 ng/mL); Benzodiazepine Urine NEGATIVE (< 200 ng/mL); PCP Urine NEGATIVE (< 25 ng/mL); THC Urine NEGATIVE (< 50 ng/mL)
[2025-02-18 17:51] LABS: Differential Comment SCANNED
[2025-02-18 18:15] VITALS: BP 114/64; PULSE 63; RESP 15; O2SAT 98
[2025-02-18 18:26] VITALS: BP 114/64; PULSE 63; RESP 15; TEMP 36.6; O2SAT 98
== END 2025-02-18 18:46 | disposition home or self-care (01) ==
PROVIDERS: Physician Assistant; Emergency Provider Emergency Medicine; PCP Family Medicine; Visit Provider Emergency Medicine
DX: R25.2 Cramp and spasm (principal); F41.9 Anxiety disorder, unspecified; Z87.891 Personal history of nicotine dependence; G47.419 Narcolepsy without cataplexy; Z79.899 Other long term (current) drug therapy; Z90.49 Acquired absence of other specified parts of digestive tract
CPT/HCPCS: 80048; 80307; 85025; 96361; 96374; 99285; A4216